=== PATIENT | female | born 1985 | race African-American/Black ===

== ENCOUNTER 2016-07-25 09:38 | Emergency (ER) | payer OTHER | END 2016-07-25 12:29 | disposition home or self-care (01) | DX: S83.411A Sprain of medial collateral ligament of right knee, initial encounter (principal); X50.9XXA Other and unspecified overexertion or strenuous movements or postures, initial encounter; Y93.B3 Activity, free weights; Y92.39 Other specified sports and athletic area as the place of occurrence of the external cause ==

== ENCOUNTER 2016-12-14 08:52 | Emergency (ER) | payer OTHER ==
--- NOTE | 2016-12-14 09:07 | ED Physician Documentation ---
PD HPI ABD PAIN - Stated complaint Stated Complaint: ABD PX - Chief complaint Chief Complaint: Abd Pain - History obtained from History obtained from: Patient - History of Present Illness Timing - onset: Yesterday Timing - duration: Days (1) Timing - details: Abrupt onset, Still present, Waxing and waning Quality: Aching, Stabbing, Pain Location: Epigastric Radiation: Upper back Improved by: No: Eating, Position Worsened by: Eating, Breathing, Palpation. No: Moving, Position Associated symptoms: Nausea. No: Fever, Vomiting, Diarrhea, Melena, Hematochezia, Dysuria Similar symptoms before: Has not had sx before Recently seen: Not recently seen Review of Systems Constitutional: denies: Fever, Chills Nose: denies: Rhinorrhea / runny nose, Congestion Throat: denies: Sore throat Cardiac: denies: Chest pain / pressure, Palpitations Respiratory: denies: Dyspnea, Cough, Wheezing GI: reports: Abdominal Pain, Nausea. 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 - Present Medications Home Medications: Ambulatory Orders Medication Instructions Recorded Confirmed Ergocalciferol [Vitamin D2] 1 tab PO DAILY 07/25/16 07/25/16 Hydromorphone HCl [Dilaudid] 4 - 8 mg PO Q4HR PRN #20 tablet 07/25/16 Levothyroxine [Synthroid] 25 mcg PO DAILY 07/25/16 07/25/16 Famotidine [Pepcid] 20 mg PO ONCE #30 tablet 12/14/16 HYDROmorphone [Dilaudid] 2 mg PO Q6H PRN #15 tablet 12/14/16 Ondansetron Odt [Zofran] 4 mg TL Q6H PRN #15 tablet 12/14/16 Sucralfate 1 gm PO QID #28 tablet 12/14/16 - Allergies Allergies/Adverse Reactions: Allergies Allergy/AdvReac Type Severity Reaction Status Date / Time acetaminophen Allergy Unknown Verified 07/25/16 09:50 [From Darvocet-N 100] avocado Allergy Unknown Verified 07/25/16 09:50 coconut oil Allergy Unknown Verified 07/25/16 09:50 oxycodone HCl * Allergy Unknown Verified 07/25/16 09:50 [From Percocet] propoxyphene napsylate * Allergy Unknown Verified 07/25/16 09:50 [From Darvocet-N 100] codeine AdvReac Unknown Verified 07/25/16 09:50 hydrocodone bitartrate * AdvReac Unknown Verified 07/25/16 09:50 [From Vicodin] Iodine and Iodide Containing AdvReac Unknown Verified 07/25/16 09:51 Produc tramadol AdvReac Unknown Verified 07/25/16 09:50 - Social History Does the pt smoke?: No Smoking Status: Never smoker Does the pt drink ETOH?: No Does the pt have substance abuse?: No - Immunizations Immunizations are current?: Yes - POLST Patient has POLST: No PD ED PE NORMAL - Vitals Vital signs reviewed: Yes - General General: Alert and oriented X 3, Well developed/nourished - HEENT HEENT: PERRL (nonicteric), Pharynx benign - Neck Neck: Supple, no meningeal sign, No adenopathy - Cardiac Cardiac: RRR, No murmur - Respiratory Respiratory: Clear bilaterally - Abdomen Abdomen: Normal bowel sounds, Soft, Non distended, No organomegaly, Other ( moderately obese. Tender epigastric with guarding. No rebound nor percussion tenderness. ) - Female Female : Deferred - Rectal Rectal: Deferred - Back Back: No CVA TTP - Derm Derm: Normal color, Warm and dry - Extremities Extremities: Normal ROM s pain, No edema, No calf tenderness / cord - Neuro Neuro: Alert and oriented X 3, No motor deficit, Normal speech Results - Vitals Vitals: Vital Signs - 24 hr 12/14/16 12/14/16 12/14/16 08:55 11:05 12:46 Temperature 36.9 C Heart Rate 84 72 70 Respiratory 18 14 14 Rate Blood Pressure 111/76 98/61 108/64 O2 Saturation 100 98 98 12/14/16 13:44 Temperature 36.9 C Heart Rate 74 Respiratory 16 Rate Blood Pressure 102/68 O2 Saturation 98 Oxygen O2 Source Room air - Labs Labs: Laboratory Tests 12/14/16 12/14/16 12/14/16 09:17 09:40 09:40 WBC 9.0 RBC 4.52 Hgb 12.5 Hct 37.3 MCV 82.6 MCH 27.7 MCHC 33.6 RDW 13.8 Plt Count 232 MPV 7.5 L Neut # 5.1 Lymph # 3.1 Jackson # 0.6 Eos # 0.1 Baso # 0.1 Absolute Nucleated RBC 0.01 Nucleated RBCs 0.1 Sodium 139 Potassium 4.1 Chloride 104 Carbon Dioxide 24 Anion Gap 11.0 BUN 8 Creatinine 0.6 Estimated GFR (MDRD) 141 Glucose 103 H Calcium 9.1 Total Bilirubin 0.5 AST 24 ALT 20 Alkaline Phosphatase 70 Total Protein 7.9 Albumin 3.9 Globulin 4.0 Albumin/Globulin Ratio 1.0 Lipase 29 Urine Color YELLOW Urine Clarity CLEAR Urine pH 5.5 Ur Specific Check >=1.030 H Urine Protein NEGATIVE Urine Glucose (UA) NEGATIVE Urine Ketones NEGATIVE Urine Occult Blood NEGATIVE Urine Nitrite NEGATIVE Urine Bilirubin NEGATIVE Urine Urobilinogen 0.2 (NORMAL) Ur Leukocyte Esterase NEGATIVE Ur Microscopic Review NOT INDICATED Urine Culture Comments NOT INDICATED Urine HCG, Qual NEGATIVE H. pylori IgG Antibody 12/14/16 09:40 WBC RBC Hgb Hct MCV MCH MCHC RDW Plt Count MPV Neut # Lymph # Jackson # Eos # Baso # Absolute Nucleated RBC Nucleated RBCs Sodium Potassium Chloride Carbon Dioxide Anion Gap BUN Creatinine Estimated GFR (MDRD) Glucose Calcium Total Bilirubin AST ALT Alkaline Phosphatase Total Protein Albumin Globulin Albumin/Globulin Ratio Lipase Urine Color Urine Clarity Urine pH Ur Specific Check Urine Protein Urine Glucose (UA) Urine Ketones Urine Occult Blood Urine Nitrite Urine Bilirubin Urine Urobilinogen Ur Leukocyte Esterase Ur Microscopic Review Urine Culture Comments Urine HCG, Qual H. pylori IgG Antibody Negative - Rads (name of study) CT abd Radiology: Prelim report reviewed (normal study), EMP read contemporaneously PD MEDICAL DECISION MAKING - ED course Complexity details: reviewed results, re-evaluated patient (mildly improved with GI meds. Better with pain meds. ), considered differential (sounds like gastritis/ulcer, but only mildly improved with GI cocktail. Consider perforation /leakage. Labs are good so not pancreatitis. Has had prior CCY and alk phos and LFTs are normal so doubt ductal process. ), d/w patient Departure - Departure Disposition: 01 Home, Self Care Clinical Impression: Epigastric abdominal pain Condition: Stable Record reviewed to determine appropriate education?: Yes Instructions: ED Epigastric Pain UKO, ED PUD Follow-Up: [facility] [Provider Group] Prescriptions: HYDROmorphone [Dilaudid] 2 mg PO Q6H PRN #15 tablet PRN Reason: Pain Famotidine [Pepcid] 20 mg PO ONCE #30 tablet Sucralfate 1 gm PO QID #28 tablet Ondansetron Odt [Zofran] 4 mg TL Q6H PRN #15 tablet PRN Reason: Nausea / Vomiting Comments: No obvious cause of the pain based on the lab and CT tests. Things that would not show on these tests include stomach problems such as ulcer/gastritis, so will treat as that for now. Famotidine and Sucralfate as directed to reduce stomach acids and help healing. Tylenol for pain 650 mg 4 times daily. Add Dilaudid tablet (about the only thing you are not allergic to) for pain as needed. Recheck with PMD in 3-4 days. Zofran if needed for nausea. Discharge Date/Time: 12/14/16 13:49
[2016-12-14] MEDS ORDERED: ONDANSETRON 4 MG/2 ML VIAL IVP STA (09:27)
[2016-12-14] MEDS ORDERED: MAG HYDROX/AL HYDROX/SIMETH 30 ML UDC PO STA ×2 (09:27→12:54)
[2016-12-14 09:31] LABS: BILIRUBIN,URINE NEGATIVE (NEGATIVE); PH,URINE 5.5 PH (5.0-7.5)
[2016-12-14 09:32] LABS: UA CHARGE (STRIP ONLY) YES; UR CULTURE IF IND NOT INDICATED
[2016-12-14] MEDS ORDERED: MAG HYDROX/AL HYDROX/SIMETH 30 ML UDC ONE ×2 (09:36→13:27)
[2016-12-14] MEDS ORDERED: ONDANSETRON 4 MG/2 ML VIAL ONE (09:36)
[2016-12-14 09:42] LABS: HCG UR QUAL NEGATIVE
[2016-12-14 09:52] LABS: BASOPHILS # (AUTO) 0.1 10^3/uL (0.0-0.1); BASOPHILS % (AUTO) 0.8 %; EOSINOPHILS # (AUTO) 0.1 10^3/uL (0.0-0.7); EOSINOPHILS % (AUTO) 1.3 %; HCT - HEMATOCRIT 37.3 % (37.0-47.0); HGB - HEMOGLOBIN 12.5 g/dL (12.0-16.0); LYMPHOCYTES # (AUTO) 3.1 10^3/uL (1.5-3.5); LYMPHOCYTES % (AUTO) 34.4 %; MEAN CORPUSCULAR HEMOGLOBIN 27.7 pg (27.0-31.0); MEAN CORPUSCULAR HGB CONC 33.6 g/dL (32.0-36.0); MEAN CORPUSCULAR VOLUME 82.6 fL (81.0-99.0); MEAN PLATELET VOLUME 7.5 fL (7.9-10.8); MONOCYTES # (AUTO) 0.6 10^3/uL (0.0-1.0); MONOCYTES % (AUTO) 6.6 %; NEUTROPHILS # (AUTO) 5.1 10^3/uL (1.5-6.6); NEUTROPHILS % (AUTO) 56.9 %; NUCLEATED RED BLOOD CELLS AUTO 0.1 /100WBC; RED BLOOD COUNT 4.52 10^6/uL (4.20-5.40); RED CELL DISTRIBUTION WIDTH 13.8 % (12.0-15.0)
[2016-12-14 10:02] LABS: BILIRUBIN,TOTAL 0.5 mg/dL (0.2-1.0); CALCIUM 9.1 mg/dL (8.5-10.3); CREATININE 0.6 mg/dL (0.4-1.0); POTASSIUM 4.1 mmol/L (3.5-5.0); TOTAL PROTEIN 7.9 g/dL (6.7-8.2)
[2016-12-14] MEDS ORDERED: HYDROmorphone 1 MG/ML SYRINGE IVP STA ×2 (10:38→12:54)
[2016-12-14] MEDS ORDERED: HYDROmorphone 1 MG/ML SYRINGE ONE (10:54)
--- NOTE | 2016-12-14 11:20 | CT Preliminary Report ---
Exam: CT Abdomen/Pelvis W/O IMPRESSION: No acute pathology. [facility] SITE ID: [id number]
--- NOTE | 2016-12-14 11:29 | CT Report ---
EXAM: CT ABDOMEN AND PELVIS (CT KUB) EXAM DATE: 12/14/2016 11:04 AM. CLINICAL HISTORY: Upper abdomen pain. COMPARISONS: Prior CT 09/05/2014. TECHNIQUE: Routine axial helical CT imaging was performed through the abdomen and pelvis without IV c ontrast. Reconstructions: Coronal and sagittal. In accordance with CT protocol optimization, one or more of the following dose reduction techniques w ere utilized for this exam: automated exposure control, adjustment of mA and/or KV based on patient s ize, or use of iterative reconstructive technique. FINDINGS: Lung Bases: Unremarkable. Right Kidney/Ureter: No stones, hydronephrosis, or hydroureter. No perinephric fat stranding. Left Kidney/Ureter: No stones, hydronephrosis, or hydroureter. No perinephric fat stranding. Other Solid Organs: Noncontrast images of the solid organs are grossly unremarkable. Gallbladder/Bile Ducts: Prior cholecystectomy. Peritoneal Cavity: No free fluid, free air or guillaume adenopathy. Bowel is grossly unremarkable. Pelvic Organs: No bladder stones or wall thickening. Noncontrast images of the visualized pelvic orga ns are unremarkable. Vasculature: Unremarkable. Other: None. IMPRESSION: No acute pathology. [facility] Referring Provider Line: [phone] SITE ID: [id number]
[2016-12-14] MEDS ORDERED: LIDOCAINE VISCOUS 2% 15 ML UDC MM STA (12:54)
[2016-12-14] MEDS ORDERED: FAMOTIDINE 20 MG TABLET PO STA (12:54)
[2016-12-14] MEDS ORDERED: HYDROmorphone 2 MG TABLET PO STA (13:25)
[2016-12-14] MEDS ORDERED: FAMOTIDINE 20 MG TABLET ONE (13:27)
[2016-12-14] MEDS ORDERED: LIDOCAINE VISCOUS 2% 15 ML UDC MM ONE (13:27)
[2016-12-14] MEDS ORDERED: HYDROmorphone 2 MG TABLET ONE (13:31)
[2016-12-14 13:39] LABS: H. PYLORI IGG ANTIBODY Negative (Negative); HPYLORI NEG QC Negative (Negative); HPYLORI POS QC POSITIVE (Positive)
[2016-12-14 13:45] VITALS: BP 102/68
== END 2016-12-14 13:49 | disposition home or self-care (01) ==
LOC: ED 08:52
DX: R10.13 Epigastric pain (principal); R11.0 Nausea
CPT/HCPCS: 36415; 74176; 80053; 81003; 81025; 83690; 85025; 87339; 96374; 96375; 99284; A9270; J1170; 81001; 87086

== ENCOUNTER 2017-08-18 16:21 | Outpatient (CLI) | payer OTHER ==
--- NOTE | 2017-08-19 16:30 | MRI Report ---
EXAM: LEFT KNEE MRI WITHOUT CONTRAST EXAM DATE: 08/18/2017 05:44 PM. CLINICAL HISTORY: Left knee pain for 5 months after blunt trauma. COMPARISON: None. TECHNIQUE: Multiplanar, multisequence T1-weighted and fluid-sensitive sequences of the knee without c ontrast. Other: None. FINDINGS: Bones: No fractures or subluxations. No marrow edema. No bone lesions. Articular Cartilage: Mild chondromalacia trochlear groove. Mild chondromalacia patella. Medial Meniscus: Posterior horn medial meniscus multiloculated parameniscal cyst measuring 1.6 cm in height, 1.2 cm in AP dimension 4.3 cm in transverse dimension. Additional anterolateral medial menisc us parameniscal 1.1 cm in height, 4 mm in the AP dimension and 1.1 cm in transverse dimension cyst. Lateral Meniscus: The lateral meniscus is intact. Cruciate Ligaments: The anterior and posterior cruciate ligaments are intact. Collateral Ligaments: The medial collateral and lateral collateral ligamentous structures are intact. Tendons: The quadriceps, patellar, semimembranosus, and popliteus tendons are unremarkable. Musculature: No edema or fatty atrophy. Other: No effusion. No popliteal cyst. No loose bodies. The medial and lateral retinacula are intact. The subcutaneous tissues and fat pads are unremarkable. IMPRESSION: 1. No definite meniscus tear or internal derangement. 2. There is a posterior horn medial meniscus parameniscal multiloculated cyst 4.3 cm in transverse di mension, 1.2 cm in AP dimension and 1.6 cm in height. 3. Anterolateral medial meniscus parameniscal cyst 1.8 cm in transverse dimension, 1.1 cm in height a nd 4 mm in thickness. [facility] Referring Provider Line: [phone] SITE ID: [id number]
== END 2017-08-18 16:22 | disposition home or self-care (01) ==
LOC: DI 16:21
PROVIDERS: ATTEND Physician Assistant Medical
DX: M23.022 Cystic meniscus, posterior horn of medial meniscus, left knee (principal); M23.032 Cystic meniscus, other medial meniscus, left knee

== ENCOUNTER 2017-10-16 12:37 | Emergency (ER) | payer OTHER ==
[2017-10-16 12:59] VITALS: BP 129/87
[2017-10-16] MEDS ORDERED: MAG HYDROX/AL HYDROX/SIMETH 30 ML UDC PO STA (13:17)
[2017-10-16] MEDS ORDERED: PHENobarb/HYOSCY/ATROPINE/SCOP 5 ML UDC PO STA (13:18)
[2017-10-16] MEDS ORDERED: LIDOCAINE VISCOUS 2% 15 ML UDC MM STA (13:18)
--- NOTE | 2017-10-16 14:40 | XRAY Preliminary Report ---
Exam: XR CHEST 2 VIEW X-RAY IMPRESSION: Normal 2-view chest radiography. [facility] SITE ID: [id number]
--- NOTE | 2017-10-16 14:41 | XRAY Report ---
EXAM: CHEST RADIOGRAPHY EXAM DATE: 10/16/2017 02:04 PM. CLINICAL HISTORY: Possible aspiration last night. Patient presents with chest pain. COMPARISON: None. TECHNIQUE: 2 views. FINDINGS: Lungs/Pleura: No focal opacities evident. No pleural effusion. No pneumothorax. Normal volumes. Mediastinum: Heart and mediastinal contours are unremarkable. Other: Large osteophytes extending off the left side of the inferior thoracic spine. Cholecystectomy. IMPRESSION: Normal 2-view chest radiography. [facility] Referring Provider Line: [phone] SITE ID: [id number]
--- NOTE | 2017-10-16 14:53 | ED Physician Documentation ---
PD HPI CHEST PAIN - Stated complaint Stated Complaint: THROAT PX, CHEST PX WITH COUGH - Chief complaint Chief Complaint: Heent - History obtained from History obtained from: Patient - History of Present Illness Timing - onset: Yesterday Quality: Tightness Location: Substernal Associated symptoms: Cough Similar symptoms before: Has not had sx before - Additional information Additional information: The patient is a 32-year-old female who complains of sore throat and substernal chest tightness. Her symptoms started last night when she vomited 5 times after eating. She reports cough, but denies shortness of breath. Last night she thought she might be having an allergic reaction to something she ate, so took Benadryl. She denies history of similar symptoms in the past. Review of Systems Constitutional: denies: Fever Nose: denies: Congestion Throat: reports: Sore throat (Described as "raw feeling.") Cardiac: reports: Chest pain / pressure (Substernal "tightness" with coughing.) . denies: Palpitations Respiratory: reports: Cough. denies: Dyspnea GI: reports: Vomiting (Vomiting last night, but not today.). 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 - Present Medications Home Medications: Ambulatory Orders Medication Instructions Recorded Confirmed Adalimumab [Humira] 10 mg PO 05/22/17 - Allergies Allergies/Adverse Reactions: Allergies Allergy/AdvReac Type Severity Reaction Status Date / Time acetaminophen Allergy Unknown Verified 10/16/17 12:59 [From Darvocet-N 100] avocado Allergy Unknown Verified 10/16/17 12:59 coconut oil Allergy Unknown Verified 10/16/17 12:59 oxycodone HCl * Allergy Unknown Verified 10/16/17 12:59 [From Percocet] propoxyphene napsylate * Allergy Unknown Verified 10/16/17 12:59 [From Darvocet-N 100] codeine AdvReac Unknown Verified 10/16/17 12:59 hydrocodone bitartrate * AdvReac Unknown Verified 10/16/17 12:59 [From Vicodin] Iodine and Iodide Containing AdvReac Unknown Verified 10/16/17 12:59 Produc tramadol AdvReac Unknown Verified 10/16/17 12:59 - Social History Does the pt smoke?: No Smoking Status: Never smoker Does the pt drink ETOH?: No Does the pt have substance abuse?: No - Immunizations Immunizations are current?: Yes - POLST Patient has POLST: No PD ED PE NORMAL - Vitals Vital signs reviewed: Yes (Borderline hypertension initially.) - General General: Alert and oriented X 3, Well developed/nourished - HEENT HEENT: Atraumatic, EOMI, Moist mucous membranes, Pharynx benign - Neck Neck: Supple, no meningeal sign, No adenopathy, No JVD - Cardiac Cardiac: RRR, No murmur - Respiratory Respiratory: No respiratory distress, Clear bilaterally - Abdomen Abdomen: Soft, Other (Mild epigastric tenderness to palpation, without rebound or guarding.) - Back Back: No CVA TTP - Derm Derm: No rash - Extremities Extremities: No edema, No calf tenderness / cord - Neuro Neuro: Alert and oriented X 3, No motor deficit, Normal speech Results - Vitals Vitals: Oxygen O2 Source Room air - Rads (name of study) CXR Radiology: Prelim report reviewed, EMP read contemporaneously, See rad report ( Normal 2 view chest radiography.) PD MEDICAL DECISION MAKING - ED course Complexity details: reviewed results, re-evaluated patient, considered differential, d/w patient ED course: The patient's presentation is most consistent with esophageal inflammation caused by vomiting. Suha-Carter tear is considered, but is less likely. Chest x-ray was performed, and there is no evidence of radiographic abnormality. Treatment in the emergency department included administration of GI cocktail, which improved the patient's symptoms. She is being discharged with a prescription for ranitidine. I discussed with her the diagnosis, symptomatically treatment and outpatient follow-up, as well as potentially worrisome signs or symptoms that should prompt reevaluation in the emergency department. Departure - Departure Disposition: 01 Home, Self Care Clinical Impression: GERD (gastroesophageal reflux disease) Qualifiers: Esophagitis presence: esophagitis presence not specified Qualified Code(s): K21.9 - Gastro-esophageal reflux disease without esophagitis Condition: Stable Instructions: ED GERD Follow-Up: Ac,Thu A, COMPLIANCE COUNSEL [Primary Care Provider] - Comments: Use ranitidine twice daily as previously prescribed. You can use liquid antacid, such as Maalox or Mylanta if needed for recurrent symptoms. Follow up with your primary physician within 1-2 weeks. Call to schedule an appointment. Return to the emergency department if you develop increasing pain, persistent vomiting, or otherwise worsening symptoms. Discharge Date/Time: 10/16/17 15:09
== END 2017-10-16 15:09 | disposition home or self-care (01) ==
LOC: ED 12:37
DX: K21.9 Gastro-esophageal reflux disease without esophagitis (principal)
CPT/HCPCS: 71046; 99282; 99284; A9270

== ENCOUNTER 2018-03-25 10:51 | Outpatient (CLI) | payer OTHER | END 2018-03-25 10:52 | disposition critical access hospital (66) | LOC: EMS 10:51 | PROVIDERS: ATTEND Surgery | DX: R13.10 Dysphagia, unspecified (principal); R06.00 Dyspnea, unspecified; L29.9 Pruritus, unspecified | CPT/HCPCS: A0425; A0427 ==

== ENCOUNTER 2018-03-25 11:17 | Emergency (ER) | payer OTHER ==
[2018-03-25] MEDS ORDERED: DEXAMETHASONE 10 MG/ML VIAL IVP STA (12:08)
--- NOTE | 2018-03-25 12:09 | ED Physician Documentation ---
History of Present Illness - Stated complaint Stated Complaint: DIFF. BREATHING - Chief complaint Chief Complaint: Resp - History obtained from History obtained from: Patient - History of Present Illness Timing: Today (32-year-old woman with no possibility of , multiple food and drug allergies. She woke at 8 AM this morning with a sensation of shortness of breath due to throat swelling. There is no associated wheezing or rash. She does not know what caused it. 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 - Present Medications Home Medications: Ambulatory Orders Medication Instructions Recorded Confirmed Adalimumab [Humira] 10 mg PO 05/22/17 Meloxicam 7.5 mg 03/25/18 buPROPion [Wellbutrin Sr] 100 mg 03/25/18 predniSONE [Prednisone] 60 mg PO DAILY 5 Days #15 tablet 03/25/18 - Allergies Allergies/Adverse Reactions: Allergies Allergy/AdvReac Type Severity Reaction Status Date / Time acetaminophen Allergy Unknown Verified 03/25/18 11:30 [From Darvocet-N 100] avocado Allergy Unknown Verified 03/25/18 11:30 coconut oil Allergy Unknown Verified 03/25/18 11:30 oxycodone HCl * Allergy Unknown Verified 03/25/18 11:30 [From Percocet] propoxyphene napsylate * Allergy Unknown Verified 03/25/18 11:30 [From Darvocet-N 100] codeine AdvReac Unknown Verified 03/25/18 11:30 hydrocodone bitartrate * AdvReac Unknown Verified 03/25/18 11:30 [From Vicodin] Iodine and Iodide Containing AdvReac Unknown Verified 03/25/18 11:30 Produc tramadol AdvReac Unknown Verified 03/25/18 11:30 - Social History Does the pt smoke?: No Smoking Status: Never smoker Does the pt drink ETOH?: No Does the pt have substance abuse?: No - Immunizations Immunizations are current?: Yes - POLST Patient has POLST: No PD ED PE NORMAL - Vitals Vital signs reviewed: Yes - General General: Alert and oriented X 3, No acute distress - HEENT HEENT: Ears normal, Pharynx benign - Neck Neck: Supple, no meningeal sign, No bony TTP - Cardiac Cardiac: RRR, No murmur - Respiratory Respiratory: No respiratory distress, Clear bilaterally - Abdomen Abdomen: Non tender - Derm Derm: No rash - Neuro Neuro: Alert and oriented X 3, Normal speech Results - Vitals Vitals: Vital Signs - 24 hr 03/25/18 11:25 Temperature 36.7 C Heart Rate 98 Respiratory 18 Rate Blood Pressure 117/77 O2 Saturation 95 Oxygen O2 Source Room air PD MEDICAL DECISION MAKING - Sepsis Event Vital Signs: Vital Signs - 24 hr 03/25/18 11:25 Temperature 36.7 C Heart Rate 98 Respiratory 18 Rate Blood Pressure 117/77 O2 Saturation 95 Oxygen O2 Source Room air Departure - Departure Disposition: 01 Home, Self Care Clinical Impression: Allergic reaction Qualifiers: Encounter type: initial encounter Qualified Code(s): T78.40XA - Allergy, unspecified, initial encounter Condition: Good Record reviewed to determine appropriate education?: Yes Instructions: ED Allergic React Food Prescriptions: predniSONE [Prednisone] 60 mg PO DAILY 5 Days #15 tablet Comments: Call your doctor to arrange a follow-up appointment, make the next available appointment. In the interim, return anytime if worse or if new symptoms develop.
[2018-03-25 12:41] VITALS: BP 115/66
== END 2018-03-25 12:39 | disposition home or self-care (01) ==
LOC: ED 11:17
DX: T78.40XA Allergy, unspecified, initial encounter (principal); X58.XXXA Exposure to other specified factors, initial encounter; Z91.018 Allergy to other foods; Z88.9 Allergy status to unspecified drugs, medicaments and biological substances
CPT/HCPCS: 96374; 99283

== ENCOUNTER 2019-06-23 12:03 | Emergency (ER) | payer OTHER ==
[2019-06-23] MEDS ORDERED: LIDOCAINE 1%-EPI 1:100000 20 ML MDV ONE (13:22)
--- NOTE | 2019-06-23 13:36 | ED Physician Documentation ---
PD HPI SKIN - Stated complaint Stated Complaint: ABSCESS - Chief complaint Chief Complaint: Wound - History obtained from History obtained from: Patient - History of Present Illness Timing - onset: How many days ago (3) Timing - duration: Days (3) Timing - details: Abrupt onset Severity Comments: mild Location: Other (right axilla) Quality / character: Painful, Swelling Improved by: Other (nothing) Worsened by (comment): COMMENT (palpation) Associated symptoms: No: Fever Contributing factors: Other (hx of hidradenitis supparativa) - Treatment prior to arrival Treatment prior to arrival: none Review of Systems Ten Systems: 10 systems reviewed and negative Constitutional: denies: Fever Cardiac: reports: Reviewed and negative Respiratory: reports: Reviewed and negative GI: reports: Reviewed and negative. denies: Nausea, Vomiting Skin: reports: Other (abscess) Musculoskeletal: reports: Reviewed and negative Neurologic: reports: Reviewed and negative Endocrine: reports: Reviewed and negative Immunocompromised: reports: Reviewed and negative PD PAST MEDICAL HISTORY - Past Medical History Past Medical History: Yes Respiratory: Asthma Endocrine/Autoimmune: None GI: Hiatal hernia Psych: Depression Derm: Psoriasis Other Past Medical History: hydranitis. 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, Other - Present Medications Home Medications: Ambulatory Orders Medication Instructions Recorded Confirmed Adalimumab [Humira] 10 mg PO 05/22/17 Meloxicam 7.5 mg 03/25/18 buPROPion [Wellbutrin Sr] 100 mg 03/25/18 predniSONE [Prednisone] 60 mg PO DAILY 5 Days #15 tablet 03/25/18 Cephalexin [Keflex] 500 mg PO Q6H #28 capsule 06/23/19 - Allergies Allergies/Adverse Reactions: Allergies Allergy/AdvReac Type Severity Reaction Status Date / Time acetaminophen Allergy Unknown Verified 06/23/19 12:09 [From Darvocet-N 100] avocado Allergy Unknown Verified 06/23/19 12:09 coconut oil Allergy Unknown Verified 06/23/19 12:09 oxycodone HCl * Allergy Unknown Verified 06/23/19 12:09 [From Percocet] propoxyphene napsylate * Allergy Unknown Verified 06/23/19 12:09 [From Darvocet-N 100] codeine AdvReac Unknown Verified 06/23/19 12:09 hydrocodone bitartrate * AdvReac Unknown Verified 06/23/19 12:09 [From Vicodin] Iodine and Iodide Containing AdvReac Unknown Verified 06/23/19 12:09 Produc tramadol AdvReac Unknown Verified 06/23/19 12:09 - Social History Does the pt smoke?: No Smoking Status: Never smoker Does the pt drink ETOH?: Yes Does the pt have substance abuse?: No - Immunizations Immunizations are current?: Yes - POLST Patient has POLST: No PD ED PE NORMAL - Vitals Vital signs reviewed: Yes - General General: Alert and oriented X 3, No acute distress, Well developed/nourished - HEENT HEENT: Atraumatic, Moist mucous membranes - Neck Neck: Supple, no meningeal sign - Cardiac Cardiac: RRR - Respiratory Respiratory: No respiratory distress - Abdomen Abdomen: Soft, Non distended, Other (obese) - Female Female : Deferred - Rectal Rectal: Deferred - Derm Derm: Normal color, Warm and dry, No rash, Other (R axillary tenderness, about 2cm in size subcutaneous palpable mass in the axilla. not fluctuant. very tender, no surrounding redness or swelling) - Neuro Neuro: Alert and oriented X 3, Normal speech Eye Opening: Spontaneous Motor: Obeys Commands Verbal: Oriented GCS Score: 15 - Psych Psych: Normal mood, Normal affect Results - Vitals Vitals: Vital Signs - 24 hr 06/23/19 06/23/19 12:09 12:32 Temperature 37.1 C 36.7 C Heart Rate 91 93 Respiratory 18 18 Rate Blood Pressure 115/50 L 160/92 H O2 Saturation 96 98 Oxygen O2 Source Room air Procedures - Abscess I&D (location) Other right Preparation: Confirmed with ultrasound, Lidocaine 2 %, With epi Incision: Incised with scalpel, Other (minimal serous drainage) Other: Pt tolerated well - Bedside sono Bedside sono by EMP: Bedside skin US of R axilla performed demonstrates a small fluid collection about 1x2cm in size PD MEDICAL DECISION MAKING - ED course Complexity details: re-evaluated patient, considered differential, d/w patient ED course: abscess, cellulitis, cyst, lymph node, sebaceous cyst. 33 y/o F with hx of hidadrenitis suppurative with a small lump under her R axilla. Small palpable fluid collection, visualized on US performed I&D here with small amount of nonpurulent fluid. She is stable for discharge with oral antibiotics and outpt f/u for wound recheck. Departure - Departure Disposition: 01 Home, Self Care Clinical Impression: Axillary abscess Condition: Stable Record reviewed to determine appropriate education?: Yes Instructions: ED Abscess IandD Follow-Up: Antonio Marlow MD [Primary Care Provider] - As Needed Prescriptions: Cephalexin [Keflex] 500 mg PO Q6H #28 capsule
[2019-06-23 13:54] VITALS: BP 116/56
== END 2019-06-23 13:55 | disposition home or self-care (01) ==
LOC: ED 12:03
DX: L02.411 Cutaneous abscess of right axilla (principal)
CPT/HCPCS: 10060

== ENCOUNTER 2019-08-08 20:47 | Emergency (ER) | payer OTHER ==
--- NOTE | 2019-08-08 20:50 | ED Physician Documentation ---
History of Present Illness - Stated complaint Stated Complaint: UPPER RT SIDE PAIN - Chief complaint Chief Complaint: Abd Pain - History obtained from History obtained from: Patient (The patient is a very pleasant 33-year-old female with a history of previous cholecystectomy about 3 years ago presents with right upper quadrant pain with nausea without vomiting she denies any chest pain or breast pain she denies any syncopal episodes denies any history of pulmonary embolism or DVT denies any recent surgeries or long travels or any history of hypercoagulability.) Review of Systems Constitutional: reports: Reviewed and negative Eyes: reports: Reviewed and negative Ears: reports: Reviewed and negative Nose: reports: Reviewed and negative Throat: reports: Reviewed and negative Cardiac: reports: Reviewed and negative Respiratory: reports: Reviewed and negative GI: reports: Abdominal Pain, Reviewed and negative : reports: Reviewed and negative Skin: reports: Reviewed and negative Musculoskeletal: reports: Reviewed and negative Neurologic: reports: Reviewed and negative Psychiatric: reports: Reviewed and negative Endocrine: reports: Reviewed and negative Immunocompromised: reports: Reviewed and negative PD PAST MEDICAL HISTORY - Past Medical History Respiratory: Asthma Endocrine/Autoimmune: None GI: Hiatal hernia Psych: Depression Derm: Psoriasis - Past Surgical History Past Surgical History: Yes 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, Other - Present Medications Home Medications: Ambulatory Orders Medication Instructions Recorded Confirmed Adalimumab [Humira] 10 mg PO 05/22/17 Meloxicam 7.5 mg 03/25/18 buPROPion [Wellbutrin Sr] 100 mg 03/25/18 predniSONE [Prednisone] 60 mg PO DAILY 5 Days #15 tablet 03/25/18 Cephalexin [Keflex] 500 mg PO Q6H #28 capsule 06/23/19 - Allergies Allergies/Adverse Reactions: Allergies Allergy/AdvReac Type Severity Reaction Status Date / Time acetaminophen Allergy Unknown Verified 06/23/19 12:09 [From Darvocet-N 100] avocado Allergy Unknown Verified 06/23/19 12:09 coconut oil Allergy Unknown Verified 06/23/19 12:09 oxycodone HCl * Allergy Unknown Verified 06/23/19 12:09 [From Percocet] propoxyphene napsylate * Allergy Unknown Verified 06/23/19 12:09 [From Darvocet-N 100] codeine AdvReac Unknown Verified 06/23/19 12:09 hydrocodone bitartrate * AdvReac Unknown Verified 06/23/19 12:09 [From Vicodin] Iodine and Iodide Containing AdvReac Unknown Verified 06/23/19 12:09 Produc tramadol AdvReac Unknown Verified 06/23/19 12:09 - Social History Does the pt smoke?: No Smoking Status: Never smoker Does the pt drink ETOH?: Yes Does the pt have substance abuse?: No - Immunizations Immunizations are current?: Yes - POLST Patient has POLST: No PD ED PE NORMAL - Vitals Vital signs reviewed: Yes - General General: Alert and oriented X 3, No acute distress - HEENT HEENT: PERRL - Neck Neck: Supple, no meningeal sign - Cardiac Cardiac: RRR, No murmur - Respiratory Respiratory: Clear bilaterally, Other (There is point tenderness over ribs 8 and 9 in the anterior axillary line there is no ecchymosis or rashes there is no crepitus or deformities she has clear bilateral breath sounds.) - Abdomen Abdomen: Normal bowel sounds, Soft, Non tender, Non distended - Derm Derm: Warm and dry - Extremities Extremities: No deformity - Neuro Neuro: Alert and oriented X 3 - Psych Psych: Normal mood, Normal affect Results - Vitals Vitals: Vital Signs - 24 hr 08/08/19 08/08/19 20:49 21:46 Temperature 36.7 C Heart Rate 99 73 Respiratory 18 18 Rate Blood Pressure 130/58 L 125/76 O2 Saturation 100 97 Oxygen O2 Source Room air - EKG (time done) No standard instances Rate: Other (No STEMI) - Labs Labs: Laboratory Tests 08/08/19 08/08/19 08/08/19 21:00 21:35 21:35 WBC 10.0 RBC 4.35 Hgb 12.1 Hct 36.3 L MCV 83.4 MCH 27.8 MCHC 33.3 RDW 13.0 Plt Count 298 MPV 9.2 Neut # (Auto) 4.8 Lymph # (Auto) 4.4 H [place] # (Auto) 0.6 Eos # (Auto) 0.1 Baso # (Auto) 0.1 Absolute Nucleated RBC 0.00 Nucleated RBC % 0.0 PT 12.1 INR 1.1 APTT 31.1 Sodium Potassium Chloride Carbon Dioxide Anion Gap BUN Creatinine Estimated GFR (MDRD) Glucose Calcium Total Bilirubin AST ALT Alkaline Phosphatase Total Creatine Kinase Troponin I High Sens Total Protein Albumin Globulin Albumin/Globulin Ratio Lipase Urine Color YELLOW Urine Clarity CLEAR Urine pH 6.0 Ur Specific [place] 1.020 Urine Protein NEGATIVE Urine Glucose (UA) NEGATIVE Urine Ketones NEGATIVE Urine Occult Blood TRACE-INTA Urine Nitrite NEGATIVE Urine Bilirubin NEGATIVE Urine Urobilinogen 0.2 (NORMAL) Ur Leukocyte Esterase NEGATIVE Ur Microscopic Review NOT INDICATED Urine Culture Comments NOT INDICATED Urine HCG, Qual NEGATIVE 08/08/19 08/08/19 21:35 21:35 WBC RBC Hgb Hct MCV MCH MCHC RDW Plt Count MPV Neut # (Auto) Lymph # (Auto) [place] # (Auto) Eos # (Auto) Baso # (Auto) Absolute Nucleated RBC Nucleated RBC % PT INR APTT Sodium 140 Potassium 3.4 L Chloride 102 Carbon Dioxide 26 Anion Gap 12.0 BUN 10 Creatinine 0.6 Estimated GFR (MDRD) 140 Glucose 101 H Calcium 9.1 Total Bilirubin 0.4 AST 21 ALT 15 Alkaline Phosphatase 65 Total Creatine Kinase 112 Troponin I High Sens < 2.3 L Total Protein 7.7 Albumin 3.6 Globulin 4.1 Albumin/Globulin Ratio 0.9 L Lipase 52 H Urine Color Urine Clarity Urine pH Ur Specific [place] Urine Protein Urine Glucose (UA) Urine Ketones Urine Occult Blood Urine Nitrite Urine Bilirubin Urine Urobilinogen Ur Leukocyte Esterase Ur Microscopic Review Urine Culture Comments Urine HCG, Qual PD MEDICAL DECISION MAKING - ED course Complexity details: re-evaluated patient (22:14 pain resolved, cxr neg, trop neg, unsure of etiology however patient is asymptomatic currently, will encourage close f/u and return to ed w any concerns.), other (Heart score 0 PERC 0) Departure - Departure Disposition: Home, Self Care Clinical Impression: Costochondral pain Condition: Good Instructions: [facility] Follow-Up: Antonio Marlow MD [Primary Care Provider] - Tomorrow
[2019-08-08] MEDS ORDERED: KETOROLAC 30 MG/ML VIAL IVP STA (21:08)
[2019-08-08] MEDS ORDERED: SODIUM CHLORIDE 0.9% 1,000 ML IV ONE (21:08)
[2019-08-08] MEDS ORDERED: ONDANSETRON 4 MG/2 ML VIAL IVP STA (21:08)
[2019-08-08 21:30] LABS: BILIRUBIN,URINE NEGATIVE (NEGATIVE); GLUCOSE, URINE (UA) NEGATIVE (NEGATIVE); KETONES,URINE (UA) NEGATIVE (NEGATIVE); LEUKOCYTE ESTERASE, URINE NEGATIVE (NEGATIVE); NITRITE,URINE NEGATIVE (NEGATIVE); OCCULT BLOOD,URINE TRACE-INTA (NEGATIVE); PROTEIN,URINE NEGATIVE (NEGATIVE); UROBILINOGEN,URINE 0.2 (NORMAL) E.U./dL (NORMAL)
--- NOTE | 2019-08-08 21:30 | XRAY Report ---
Reason: CP SOB Procedure Date: 08/08/2019 Accession Number: [id number] / [id number] Procedure: XR - Chest 2 View X-Ray CPT Code: 98099 Final Report FULL RESULT: EXAM: CHEST RADIOGRAPHY EXAM DATE: 08/08/2019 09:20 PM. CLINICAL HISTORY: Chest pain, shortness of breath COMPARISON: CHEST 2 VIEW 10/16/2017 1:51 PM. TECHNIQUE: 2 views. FINDINGS: Lungs/Pleura: No focal opacities evident. No pleural effusion. No pneumothorax. Normal volumes. Mediastinum: Heart and mediastinal contours are unremarkable. Other: None. IMPRESSION: No acute cardiopulmonary abnormality. RADIA
[2019-08-08 21:33] LABS: CLARITY,URINE CLEAR (CLEAR); HCG UR QUAL NEGATIVE
[2019-08-08 21:41] LABS: BASOPHILS # (AUTO) 0.1 10^3/uL (0.0-0.1); BASOPHILS % (AUTO) 0.5 %; EOSINOPHILS # (AUTO) 0.1 10^3/uL (0.0-0.7); EOSINOPHILS % (AUTO) 1.1 %; HGB - HEMOGLOBIN 12.1 g/dL (12.0-16.0); LYMPHOCYTES # (AUTO) 4.4 10^3/uL (1.5-3.5); LYMPHOCYTES % (AUTO) 43.9 %; MEAN CORPUSCULAR HEMOGLOBIN 27.8 pg (27.0-31.0); MEAN CORPUSCULAR HGB CONC 33.3 g/dL (32.0-36.0); MEAN CORPUSCULAR VOLUME 83.4 fL (81.0-99.0); MEAN PLATELET VOLUME 9.2 fL (7.9-10.8); MONOCYTES # (AUTO) 0.6 10^3/uL (0.0-1.0); MONOCYTES % (AUTO) 5.9 %; NEUTROPHILS # (AUTO) 4.8 10^3/uL (1.5-6.6); NEUTROPHILS % (AUTO) 48.4 %; PLT - PLATELET COUNT 298 10^3/uL (130-450); RED BLOOD COUNT 4.35 10^6/uL (4.20-5.40)
[2019-08-08 21:55] LABS: ALBUMIN 3.6 g/dL (3.2-5.5); ALBUMIN/GLOBULIN RATIO 0.9 (1.0-2.2); BILIRUBIN,TOTAL 0.4 mg/dL (0.2-1.0); CALCIUM 9.1 mg/dL (8.5-10.3); CREATININE 0.6 mg/dL (0.4-1.0); INR 1.1 (0.8-1.2); PT - PROTHROMBIN TIME 12.1 secs (9.9-12.6); TOTAL PROTEIN 7.7 g/dL (6.7-8.2)
[2019-08-08 22:02] LABS: PARTIAL THROMBOPLASTIN TIME 31.1 secs (24.9-33.3)
[2019-08-08 22:35] VITALS: BP 117/75
== END 2019-08-08 22:45 | disposition home or self-care (01) ==
LOC: ED 20:47
DX: R07.1 Chest pain on breathing (principal); Z90.49 Acquired absence of other specified parts of digestive tract
CPT/HCPCS: 36415; 71046; 80053; 81001; 81003; 81025; 82550; 83690; 84484; 85025; 85610; 85730; 87086; 93005; 96361; 96374; 96375; 99283

== ENCOUNTER 2019-08-14 14:45 | Emergency (ER) | payer OTHER ==
--- NOTE | 2019-08-14 15:23 | XRAY Report ---
Reason: pain/trauma Procedure Date: 08/14/2019 Accession Number: [id number] / [id number] Procedure: XR - Ankle 3 View RT CPT Code: Final Report FULL RESULT: EXAM: RIGHT ANKLE RADIOGRAPHY EXAM DATE: 08/14/2019 03:14 PM. CLINICAL HISTORY: Pain/trauma. COMPARISON: None. TECHNIQUE: 3 views. FINDINGS: Bones: No fracture. Tiny plantar spur. Joints: Normal. No effusion. No subluxations. The ankle mortise is normally aligned. Soft Tissues: Ankle swelling, greatest laterally IMPRESSION: 1. No fracture or dislocation. 2. Ankle swelling RADIA
[2019-08-14] MEDS ORDERED: IBUPROFEN 800 MG TABLET PO STA (15:38)
--- NOTE | 2019-08-14 15:45 | ED Physician Documentation ---
PD HPI LOWER EXT INJURY - Stated complaint Stated Complaint: RT ANKLE INJ - Chief complaint Chief Complaint: Trauma Ext - History obtained from History obtained from: Patient - History of Present Illness PD HPI LOW EXT INJURY LOCATION: Right, Ankle Type of injury: Twist Where injury occurred: Home Timing - onset: How many hours ago (2) Pain level max: 8 Pain level now: 8 Improved by: Rest, Ice, Immobilization Worsened by: Moving, Palpating Associated symptoms: Swelling. No: Weakness, Numbness, Tingling Recently seen: Not recently seen - Additional information Additional information: 33-year-old female states that she was "kicking worms out of her garage" when she rolled her ankle. She states she now has pain from the toes to the ankle on her right foot. Worse with movement and better with rest. This occurred earlier this morning. Took Motrin at approximately 9 AM. 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, 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 - Present Medications Home Medications: Ambulatory Orders Medication Instructions Recorded Confirmed Adalimumab [Humira] 10 mg PO 05/22/17 Meloxicam 7.5 mg 03/25/18 buPROPion [Wellbutrin Sr] 100 mg 03/25/18 predniSONE [Prednisone] 60 mg PO DAILY 5 Days #15 tablet 03/25/18 Cephalexin [Keflex] 500 mg PO Q6H #28 capsule 06/23/19 Ibuprofen [Motrin] 800 mg PO Q8H PRN #30 tablet 08/14/19 - Allergies Allergies/Adverse Reactions: Allergies Allergy/AdvReac Type Severity Reaction Status Date / Time acetaminophen Allergy Unknown Verified 08/14/19 14:59 [From Darvocet-N 100] avocado Allergy Unknown Verified 08/14/19 14:59 coconut oil Allergy Unknown Verified 08/14/19 14:59 oxycodone HCl * Allergy Unknown Verified 08/14/19 14:59 [From Percocet] propoxyphene napsylate * Allergy Unknown Verified 08/14/19 14:59 [From Darvocet-N 100] codeine AdvReac Unknown Verified 08/14/19 14:59 hydrocodone bitartrate * AdvReac Unknown Verified 08/14/19 14:59 [From Vicodin] Iodine and Iodide Containing AdvReac Unknown Verified 08/14/19 14:59 Produc tramadol AdvReac Unknown Verified 08/14/19 14:59 - Social History Does the pt smoke?: No Smoking Status: Never smoker Does the pt drink ETOH?: Yes Does the pt have substance abuse?: No - Immunizations Immunizations are current?: Yes - POLST Patient has POLST: No PD ED PE NORMAL - Vitals Vital signs reviewed: Yes - General General: Alert and oriented X 3, No acute distress - HEENT HEENT: Moist mucous membranes - Neck Neck: Supple, no meningeal sign - Derm Derm: Warm and dry - Extremities Extremities: Other (TTP R ankle and foot diffusely. NVI. Swelling to the R ankle. ) - Neuro Neuro: Alert and oriented X 3 Results - Vitals Vitals: Vital Signs - 24 hr 08/14/19 14:57 Temperature 36.4 C L Heart Rate 83 Respiratory 16 Rate Blood Pressure 112/56 L O2 Saturation 98 Oxygen O2 Source Room air - Rads (name of study) R ankle xray Radiology: Prelim report reviewed, EMP read contemporaneously, See rad report (1. No fracture or dislocation. 2. Ankle swelling ) R foot xray Radiology: Prelim report reviewed, EMP read contemporaneously, See rad report (1. No acute osseous abnormality in the foot. 2. On AP view of the foot, there appears to be an acute nondisplaced fracture of the lateral malleolus which was occult on ankle x-rays of the same date. Consider casting and follow-up x-rays i n 7-[address] for further evaluation/confirmation. ) Procedures - Splint (location) Right lower extremity Splint applied by: Physician, Tech Type of splint: Fiberglass, Short leg, Posterior Other: Patient tolerated well, No complications, Neurovascular intact, Crutches provided PD MEDICAL DECISION MAKING - ED course Complexity details: reviewed results, re-evaluated patient, considered musa petersen, d/w patient ED course: Patient with a possible nondisplaced fracture of the lateral malleolus on one view foot x-ray. Placed in a posterior splint. We will have her rechecked by orthopedics in a week and have repeat x-rays at that time. Patient is allergic to most pain medications. She states that she can utilize Motrin at home. Neurovascularly intact. Patient counseled regarding signs and symptoms for which I believe and urgent re-evaluation would be necessary. Patient with good understanding of and agreement to plan and is comfortable going home at this time This document was made in part using voice recognition software. While efforts are made to proofread this document, sound alike and grammatical errors may occur. Departure - Departure Disposition: 01 Home, Self Care Clinical Impression: Right ankle sprain Qualifiers: Encounter type: initial encounter Involved ligament of ankle: unspecified ligament Qualified Code(s): S93.401A - Sprain of unspecified ligament of right ankle, initial encounter Condition: Good Instructions: ED Fx Ankle Lateral Malleolus Follow-Up: your,doctor in 1 week [Other] [facility] [Provider Group] - Within 1 week Prescriptions: Ibuprofen [Motrin] 800 mg PO Q8H PRN #30 tablet PRN Reason: PAIN &/OR FEVER Comments: Return if you worsen. Your xray shows a possible nondisplaced fracture of your lateral malleolus. This is only visible on one view. You should have repeat x- rays in 1 week. Follow-up with orthopedicds for further care. Continue to ice and elevate at home.
--- NOTE | 2019-08-14 16:04 | XRAY Report ---
Reason: R foot pain s/p fall Procedure Date: 08/14/2019 Accession Number: [id number] / [id number] Procedure: XR - Foot 3 View RT CPT Code: Final Report FULL RESULT: EXAM: RIGHT FOOT RADIOGRAPHY EXAM DATE: 08/14/2019 03:53 PM. CLINICAL HISTORY: R foot pain s/p fall. COMPARISON: ANKLE 3 VIEW RT 08/14/2019 2:55 PM. TECHNIQUE: 3 views. FINDINGS: Bones: No acute fracture in the foot. On AP view of the foot, there appears to be a acute nondisplaced fracture of the lateral malleolus which was occult on ankle x-rays of the same date. No suspicious osseous lesion. Joints: No significant joint space narrowing. No dislocation. Other: None. IMPRESSION: 1. No acute osseous abnormality in the foot. 2. On AP view of the foot, there appears to be an acute nondisplaced fracture of the lateral malleolus which was occult on ankle x-rays of the same date. Consider casting and follow-up x-rays in 7-[address] for further evaluation/confirmation. RADIA
[2019-08-14 16:24] VITALS: BP 118/59
== END 2019-08-14 16:31 | disposition home or self-care (01) ==
LOC: ED 14:45
DX: S93.401A Sprain of unspecified ligament of right ankle, initial encounter (principal); X50.1XXA Overexertion from prolonged static or awkward postures, initial encounter; Y93.H9 Activity, other involving exterior property and land maintenance, building and construction; Y92.008 Other place in unspecified non-institutional (private) residence as the place of occurrence of the external cause
CPT/HCPCS: 29515; 73610; 73630; 99283; 99284; A9270

== ENCOUNTER 2020-03-09 20:05 | Emergency (ER) | payer OTHER ==
[2020-03-09 20:18] VITALS: BP 131/84
[2020-03-09] MEDS ORDERED: BUFFERED LIDOCAINE 10 ML SYRINGE SUBQ STA (20:41)
[2020-03-09] MEDS ORDERED: BACITRACIN ZINC OINT 1 PACKET TOP STA (20:41)
[2020-03-09] MEDS ORDERED: TETANUS/DIPHTHERIA/PERTUSSIS 0.5 ML SYRINGE IM ONE (20:42)
--- NOTE | 2020-03-09 20:54 | ED Physician Documentation ---
History of Present Illness - Stated complaint Stated Complaint: LT FINGER LAC - Chief complaint Chief Complaint: Laceration - Additonal information Additional information: 34-year-old ambidextrous female comes to the emergency department with a laceration on the medial side of her left distal finger between the PIP and DIP joint. She was using an X-Acto knife at home cutting her finger when it slipped. Last tetanus 2009 Review of Systems Constitutional: reports: Reviewed and negative Nose: reports: Reviewed and negative Throat: reports: Reviewed and negative Cardiac: reports: Reviewed and negative Respiratory: reports: Reviewed and negative GI: reports: Reviewed and negative Skin: reports: Laceration (s) (left distal index finger) PD PAST MEDICAL HISTORY - Past Medical History Past Medical History: Yes Cardiovascular: None Respiratory: Asthma Neuro: None Endocrine/Autoimmune: None GI: Hiatal hernia NUT FORMER: None : None HEENT: None Psych: Depression Musculoskeletal: None Derm: Psoriasis - Past Surgical History Past Surgical History: Yes 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: 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, Other - Present Medications Home Medications: Ambulatory Orders Medication Instructions Recorded Confirmed Adalimumab [Humira] 10 mg PO 05/22/17 Meloxicam 7.5 mg 03/25/18 buPROPion [Wellbutrin Sr] 100 mg 03/25/18 predniSONE [Prednisone] 60 mg PO DAILY 5 Days #15 tablet 03/25/18 Cephalexin [Keflex] 500 mg PO Q6H #28 capsule 06/23/19 Ibuprofen [Motrin] 800 mg PO Q8H PRN #30 tablet 08/14/19 - Allergies Allergies/Adverse Reactions: Allergies Allergy/AdvReac Type Severity Reaction Status Date / Time acetaminophen Allergy Unknown Verified 03/09/20 20:15 [From Darvocet-N 100] avocado Allergy Unknown Verified 03/09/20 20:15 coconut oil Allergy Unknown Verified 03/09/20 20:15 oxycodone HCl * Allergy Unknown Verified 03/09/20 20:15 [From Percocet] propoxyphene napsylate * Allergy Unknown Verified 03/09/20 20:15 [From Darvocet-N 100] codeine AdvReac Unknown Verified 03/09/20 20:15 hydrocodone bitartrate * AdvReac Unknown Verified 03/09/20 20:15 [From Vicodin] Iodine and Iodide Containing AdvReac Unknown Verified 03/09/20 20:15 Produc tramadol AdvReac Unknown Verified 03/09/20 20:15 - Social History Does the pt smoke?: No Smoking Status: Never smoker Does the pt drink ETOH?: Yes Does the pt have substance abuse?: No - Immunizations Immunizations are current?: Yes - POLST Patient has POLST: No PD ED PE NORMAL - Derm Derm: Normal color, Warm and dry, Other (1 cm laceration medial side left index finger between PIP and DIP joint. Patient able to fully flex and extend all joints of the left middle finger against resistance. Distal sensation preserved. 2+ radial pulse) Results - Vitals Vitals: Vital Signs - 24 hr 03/09/20 20:15 Temperature 36 C L Heart Rate 87 Respiratory 18 Rate Blood Pressure 131/84 H O2 Saturation 96 Oxygen O2 Source Room air Procedures - Laceration (location) left middle finger Length in cm: 1 Wound type: Linear Neurovascular status: Sensory intact, Motor intact, Vascular intact Tendon involvement: Tendon intact Wound Preparation: Irrigated copiously NS Skin layer closure: Dermabond Other: Patient tolerated well, No complications, Neurovascular intact, Tetanus booster given Complexity: Simple PD MEDICAL DECISION MAKING - ED course Complexity details: reviewed results, d/w patient ED course: [place] left medial finger laceration sustained this evening when seeing an X-Acto knife. No paresthesias. tendon intact. Wound easily closed with Dermabond tetanus updated today routine care and return precautions discussed Departure - Departure Disposition: 01 Home, Self Care Clinical Impression: Finger laceration Qualifiers: Encounter type: initial encounter Finger: middle finger Damage to nail status: without damage Foreign body presence: without foreign body Laterality: left Qualified Code(s): S61.213A - Laceration without foreign body of left middle finger without damage to nail, initial encounter Condition: Stable Instructions: ED Laceration Ext Skin Glue Comments: the glue on your finger will wear away in about one week. do not submerge your finger in dirty water. if you develop fevers, finger swelling, milky drainage, please return to the ED for a second look
== END 2020-03-09 22:26 | disposition home or self-care (01) ==
LOC: ED 20:05
DX: S61.211A Laceration without foreign body of left index finger without damage to nail, initial encounter (principal); W26.0XXA Contact with knife, initial encounter; Y93.D9 Activity, other involving arts and handcrafts
CPT/HCPCS: 12001; 90471; 99281; 99283

== ENCOUNTER 2020-06-13 08:00 | Outpatient (CLI) | payer BC, OTHER ==
[2020-06-13 18:27] LABS: BASOPHILS # (AUTO) 0.1 10^3/uL (0.0-0.1); BASOPHILS % (AUTO) 0.5 %; EOSINOPHILS # (AUTO) 0.1 10^3/uL (0.0-0.7); HGB - HEMOGLOBIN 11.1 g/dL (12.0-16.0); LYMPHOCYTES % (AUTO) 31.1 %; MEAN CORPUSCULAR HEMOGLOBIN 27.3 pg (27.0-31.0); MEAN CORPUSCULAR VOLUME 82.6 fL (81.0-99.0); MONOCYTES # (AUTO) 0.6 10^3/uL (0.0-1.0); MONOCYTES % (AUTO) 6.3 %; NEUTROPHILS # (AUTO) 5.9 10^3/uL (1.5-6.6); NEUTROPHILS % (AUTO) 60.9 %; PLT - PLATELET COUNT 280 10^3/uL (130-450); RED BLOOD COUNT 4.07 10^6/uL (4.20-5.40); RED CELL DISTRIBUTION WIDTH 12.9 % (12.0-15.0); WHITE BLOOD COUNT 9.7 x10^3/uL (4.8-10.8)
[2020-06-13 18:35] LABS: CALCIUM 9.3 mg/dL (8.5-10.3); CREATININE 0.7 mg/dL (0.4-1.0)
[2020-06-13 18:46] LABS: HCG UR QUAL NEGATIVE
== END 2020-06-13 23:59 | disposition home or self-care (01) ==
LOC: LAB.WCP 08:00
PROVIDERS: ATTEND Family Medicine
DX: Z01.89 Encounter for other specified special examinations (principal)
CPT/HCPCS: 36415; 80048; 81025; 85025

== ENCOUNTER 2020-06-15 12:00 | Emergency (ER) | payer BC, OTHER ==
[2020-06-15 12:53] LABS: BILIRUBIN,URINE NEGATIVE (NEGATIVE); GLUCOSE, URINE (UA) NEGATIVE (NEGATIVE); KETONES,URINE (UA) NEGATIVE (NEGATIVE); LEUKOCYTE ESTERASE, URINE NEGATIVE (NEGATIVE); NITRITE,URINE NEGATIVE (NEGATIVE); OCCULT BLOOD,URINE MODERATE (NEGATIVE); PROTEIN,URINE NEGATIVE (NEGATIVE); UROBILINOGEN,URINE 0.2 (NORMAL) E.U./dL (NORMAL)
[2020-06-15 12:54] LABS: CLARITY,URINE CLEAR (CLEAR)
[2020-06-15 12:55] LABS: HCG UR QUAL NEGATIVE
[2020-06-15 13:06] LABS: BACTERIA,URINE Rare /HPF (None Seen); RBC,URINE 0-5 /HPF (0-5); SQUAMOUS EPITHELIAL CELL,UR RARE Squamous (<= Few)
[2020-06-15 13:21] LABS: BASOPHILS # (AUTO) 0.1 10^3/uL (0.0-0.1); BASOPHILS % (AUTO) 0.6 %; EOSINOPHILS # (AUTO) 0.1 10^3/uL (0.0-0.7); EOSINOPHILS % (AUTO) 0.9 %; HGB - HEMOGLOBIN 11.5 g/dL (12.0-16.0); LYMPHOCYTES # (AUTO) 2.6 10^3/uL (1.5-3.5); LYMPHOCYTES % (AUTO) 29.7 %; MEAN CORPUSCULAR HEMOGLOBIN 27.8 pg (27.0-31.0); MEAN CORPUSCULAR HGB CONC 33.5 g/dL (32.0-36.0); MEAN CORPUSCULAR VOLUME 82.9 fL (81.0-99.0); MEAN PLATELET VOLUME 9.3 fL (7.9-10.8); MONOCYTES # (AUTO) 0.6 10^3/uL (0.0-1.0); MONOCYTES % (AUTO) 7.1 %; NEUTROPHILS # (AUTO) 5.3 10^3/uL (1.5-6.6); NEUTROPHILS % (AUTO) 61.4 %; PLT - PLATELET COUNT 277 10^3/uL (130-450); RED BLOOD COUNT 4.14 10^6/uL (4.20-5.40); RED CELL DISTRIBUTION WIDTH 13.1 % (12.0-15.0); WHITE BLOOD COUNT 8.6 x10^3/uL (4.8-10.8)
[2020-06-15 13:29] LABS: ALBUMIN 3.5 g/dL (3.2-5.5); ALBUMIN/GLOBULIN RATIO 0.9 (1.0-2.2); BILIRUBIN,TOTAL 0.4 mg/dL (0.2-1.0); CALCIUM 9.4 mg/dL (8.5-10.3); CREATININE 0.6 mg/dL (0.4-1.0); INR 1.1 (0.8-1.2); PT - PROTHROMBIN TIME 11.9 secs (9.9-12.6); TOTAL PROTEIN 7.6 g/dL (6.7-8.2)
--- NOTE | 2020-06-15 13:35 | ED Physician Documentation ---
PD HPI FEMALE - Stated complaint Stated Complaint: FEMALE - Chief complaint Chief Complaint: Abd Pain - History obtained from History obtained from: Patient - History of Present Illness Timing - onset: How many weeks ago (6) Timing - duration: Weeks (6) Timing - details: Gradual onset Pain level max: 4 Associated symptoms: Pelvic pain (cramping), Vaginal bleeding Contributing factors: No: , control, Oral contraceptive - Additional information Additional information: 34-year-old female presents to the emergency department after stating she has had vaginal bleeding for the past 6 weeks. Saw her doctor and has been referred to gynecology, she is awaiting her appointment on 26 June. Nothing makes it better or worse. She is not on control. Has low pelvic cramping as well. 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 : None HEENT: None Psych: Depression Musculoskeletal: None Derm: Psoriasis - Past Surgical History Past Surgical History: Yes General: Cholecystectomy /ESCALATOR ATTENDANT: section, Other - Present Medications Home Medications: Ambulatory Orders Medication Instructions Recorded Confirmed Adalimumab [Humira] 10 mg PO 05/22/17 Albuterol 1 applic PRN PRN 06/15/20 06/15/20 Norgestimate-Ethinyl Estradiol 1 tab PO DAILY #1 packet 06/15/20 [Sprintec 28 Day Tablet] - Allergies Allergies/Adverse Reactions: Allergies Allergy/AdvReac Type Severity Reaction Status Date / Time acetaminophen Allergy Unknown Verified 03/09/20 20:15 [From Darvocet-N 100] avocado Allergy Unknown Verified 03/09/20 20:15 coconut oil Allergy Unknown Verified 03/09/20 20:15 oxycodone HCl * Allergy Unknown Verified 03/09/20 20:15 [From Percocet] propoxyphene napsylate * Allergy Unknown Verified 03/09/20 20:15 [From Darvocet-N 100] codeine AdvReac Unknown Verified 03/09/20 20:15 hydrocodone bitartrate * AdvReac Unknown Verified 03/09/20 20:15 [From Vicodin] Iodine and Iodide Containing AdvReac Unknown Verified 03/09/20 20:15 Produc tramadol AdvReac Unknown Verified 03/09/20 20:15 - Social History Does the pt smoke?: No Smoking Status: Never smoker Does the pt drink ETOH?: Yes Does the pt have substance abuse?: No - Immunizations Immunizations are current?: Yes - POLST Patient has POLST: No PD ED PE NORMAL - Vitals Vital signs reviewed: Yes - General General: Alert and oriented X 3, No acute distress, Well developed/nourished - HEENT HEENT: Moist mucous membranes - Neck Neck: Supple, no meningeal sign - Cardiac Cardiac: RRR, Strong equal pulses - Respiratory Respiratory: No respiratory distress, Clear bilaterally - Abdomen Abdomen: Soft, Non tender, Non distended - Derm Derm: Warm and dry - Extremities Extremities: No edema - Neuro Neuro: Alert and oriented X 3 - Psych Psych: Normal mood, Normal affect Results - Vitals Vitals: Vital Signs - 24 hr 06/15/20 06/15/20 12:04 14:53 Temperature 36.3 C L 34.6 C L Heart Rate 83 79 Respiratory 16 17 Rate Blood Pressure 134/80 H 105/54 L O2 Saturation 98 99 Oxygen O2 Source Room air - Labs Labs: Laboratory Tests 06/15/20 06/15/20 06/15/20 12:32 12:55 12:55 WBC 8.6 RBC 4.14 L Hgb 11.5 L Hct 34.3 L MCV 82.9 MCH 27.8 MCHC 33.5 RDW 13.1 Plt Count 277 MPV 9.3 Neut # (Auto) 5.3 Lymph # (Auto) 2.6 Sauk # (Auto) 0.6 Eos # (Auto) 0.1 Baso # (Auto) 0.1 Absolute Nucleated RBC 0.00 Nucleated RBC % 0.0 PT INR Sodium Potassium Chloride Carbon Dioxide Anion Gap BUN Creatinine Estimated GFR (MDRD) Glucose Calcium Total Bilirubin AST ALT Alkaline Phosphatase Total Protein Albumin Globulin Albumin/Globulin Ratio Lipase Urine Color YELLOW Urine Clarity CLEAR Urine pH 8.0 H Ur Specific Christian[place] 1.020 Urine Protein NEGATIVE Urine Glucose (UA) NEGATIVE Urine Ketones NEGATIVE Urine Occult Blood MODERATE H Urine Nitrite NEGATIVE Urine Bilirubin NEGATIVE Urine Urobilinogen 0.2 (NORMAL) Ur Leukocyte Esterase NEGATIVE Urine RBC 0-5 Urine WBC 0-3 Ur Squamous Epith Cells RARE Squamous Urine Bacteria Rare Ur Microscopic Review INDICATED Urine Culture Comments NOT INDICATED Urine HCG, Qual NEGATIVE Blood Type B POSITIVE Antibody Screen NEGATIVE 06/15/20 06/15/20 12:55 12:55 WBC RBC Hgb Hct MCV MCH MCHC RDW Plt Count MPV Neut # (Auto) Lymph # (Auto) Sauk # (Auto) Eos # (Auto) Baso # (Auto) Absolute Nucleated RBC Nucleated RBC % PT 11.9 INR 1.1 Sodium 136 Potassium 3.7 Chloride 102 Carbon Dioxide 24 Anion Gap 10.0 BUN 8 Creatinine 0.6 Estimated GFR (MDRD) 139 Glucose 97 Calcium 9.4 Total Bilirubin 0.4 AST 20 ALT 16 Alkaline Phosphatase 76 Total Protein 7.6 Albumin 3.5 Globulin 4.1 Albumin/Globulin Ratio 0.9 L Lipase 35 Urine Color Urine Clarity Urine pH Ur Specific Christiana Urine Protein Urine Glucose (UA) Urine Ketones Urine Occult Blood Urine Nitrite Urine Bilirubin Urine Urobilinogen Ur Leukocyte Esterase Urine RBC Urine WBC Ur Squamous Epith Cells Urine Bacteria Ur Microscopic Review Urine Culture Comments Urine HCG, Qual Blood Type Antibody Screen - Rads (name of study) pelvic US Radiology: Prelim report reviewed, EMP read contemporaneously, See rad report PD MEDICAL DECISION MAKING - ED course Complexity details: reviewed results, re-evaluated patient, considered differential, d/w patient ED course: 34-year-old female presents to the emergency department with dysfunctional uterine bleeding and menorrhagia. She does have uterine fibroids on ultrasound. No drop in hemoglobin. Discussed the case with Dr. Sims, gynecology on- call who recommends starting her on Sprintec. We will start the patient on this. She does not have any history of blood clots. No history of liver disease. Patient counseled regarding signs and symptoms for which I believe and urgent re-evaluation would be necessary. Patient with good understanding of and agreement to plan and is comfortable going home at this time This document was made in part using voice recognition software. While efforts are made to proofread this document, sound alike and grammatical errors may occur. Patient will follow up with [place] [facility] as scheduled next week 1. Small uterine fibroid as above. No gross endometrial mass or fluid. 2. Bilateral ovarian follicles and cysts as above. No evidence of ovarian torsion. No gross solid appearing ovarian lesion. Departure - Departure Disposition: 01 Home, Self Care Clinical Impression: Dysfunctional uterine bleeding Menorrhagia Qualifiers: Menorrhagia type: with irregular cycle Qualified Code(s): N92.1 - Excessive and frequent menstruation with irregular cycle Uterine fibroid Qualifiers: Uterine leiomyoma location: submucous Qualified Code(s): D25.0 - Submucous leiomyoma of uterus Condition: Good Instructions: ED Bleed Irregular Vaginal Follow-Up: IZZY GENAO ARNP [Primary Care Provider] - Within 1 week Prescriptions: Norgestimate-Ethinyl Estradiol [Sprintec 28 Day Tablet] 1 tab PO DAILY #1 packet Comments: We will start you on Sprintec today. I spoke with gynecology, Dr. Sims. Return if you worsen. 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 Discharge Date/Time: 06/15/20 14:58
--- NOTE | 2020-06-15 14:25 | Ultrasound Report ---
PROCEDURE: Pelvic w/Transvag+Doppler Comp INDICATIONS: vaginal bleeding x 6 weeks TECHNIQUE: Real-time scanning was performed of the pelvic organs, with image documentation. Additional endovagi nal scanning was necessary due to incomplete visualization of the adnexal and endometrial structures by transabdominal scanning. COMPARISON: CT of abdomen and pelvis dated 12/14/2016.. FINDINGS: Transabdominal scanning: Limited scanning through the kidneys shows no hydronephrosis. No pathologi c free abdominal or pelvic fluid. Endovaginal scanning: Uterus: Uterus is normal in size at 8.4 x 4.6 x 4.9 cm. The endometrium measures 8 mm in combined t hickness. There is no endometrial mass or fluid. Heterogeneous myometrial echotexture is seen with a 2.5 x 1.5 x 2.3 cm submucosal fibroid seen in posterior right myometrium. Small nabothian cysts are noted in endocervical canal. Ovaries: Right ovary measures 3.6 x 2.4 x 2.5 cm in size. Left ovary measures 2.6 x 3 x 2.3 cm in si ze. Less than 12 bilateral ovarian follicles are seen. Simple cyst is seen in left ovary measures 2.3 x 2 x 2.2 cm in size. Normal arterial and venous flow is seen in bilateral ovaries on color Doppler images. No solid appearing ovarian lesion. IMPRESSION: 1. Small uterine fibroid as above. No gross endometrial mass or fluid. 2. Bilateral ovarian follicles and cysts as above. No evidence of ovarian torsion. No gross solid stephanie earing ovarian lesion. Reviewed by: Scott Collazo MD on 06/15/2020 2:23 PM PST Approved by: Scott Collazo MD on 06/15/2020 2:23 PM PST Station ID: [id number]
[2020-06-15 14:53] VITALS: BP 105/54
== END 2020-06-15 14:58 | disposition home or self-care (01) ==
LOC: ED 12:00
DX: N93.8 Other specified abnormal uterine and vaginal bleeding (principal); N92.1 Excessive and frequent menstruation with irregular cycle; D25.0 Submucous leiomyoma of uterus; N83.202 Unspecified ovarian cyst, left side
CPT/HCPCS: 36415; 80053; 81001; 81003; 81025; 83690; 85025; 85610; 86850; 86900; 86901; 87086; 93975; 99284; 99285

== ENCOUNTER 2020-09-07 09:54 | Emergency (ER) | payer OTHER ==
[2020-09-07] MEDS ORDERED: CHERRY SYRUP 10 ML UDC PO ONE (10:05)
[2020-09-07] MEDS ORDERED: DEXAMETHASONE 10 MG/ML VIAL PO STA (10:05)
--- NOTE | 2020-09-07 10:13 | ED Physician Documentation ---
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 She took Benadryl 50 mg and use her rescue inhaler with improvement in cough, throat tightness, and vocal changes, but was told to come into the emergency department because she still has some persistent voice changes. Patient denies dizziness, chest pain, shortness of breath, facial swelling, rash however she does feel some tightness around the lips. She is declining EpiPen and would like to continue to monitor her symptoms since they are improving. She has an EpiPen in her car and at home. Review of Systems Ten Systems: 10 systems reviewed and negative Constitutional: denies: Fever, Chills Throat: denies: Sore throat Respiratory: reports: Cough, Other (throat tightening) GI: reports: Nausea (nausea now resolved). denies: Vomiting Skin: reports: Other (facial itching). 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 WORKER: section, Other - Present Medications Home Medications: Ambulatory Orders Medication Instructions Recorded Confirmed Adalimumab [Humira] 10 mg PO 05/22/17 Albuterol 1 applic PRN PRN 06/15/20 06/15/20 Norgestimate-Ethinyl Estradiol 1 tab PO DAILY #1 packet 06/15/20 [Sprintec 28 Day Tablet] - Allergies Allergies/Adverse Reactions: Allergies Allergy/AdvReac Type Severity Reaction Status Date / Time acetaminophen Allergy Unknown Verified 09/07/20 09:59 [From Darvocet-N 100] avocado Allergy Unknown Verified 09/07/20 09:59 coconut oil Allergy Unknown Verified 09/07/20 09:59 oxycodone HCl * Allergy Unknown Verified 09/07/20 09:59 [From Percocet] propoxyphene napsylate * Allergy Unknown Verified 09/07/20 09:59 [From Darvocet-N 100] codeine AdvReac Unknown Verified 09/07/20 09:59 hydrocodone bitartrate * AdvReac Unknown Verified 09/07/20 09:59 [From Vicodin] Iodine and Iodide Containing AdvReac Unknown Verified 09/07/20 09:59 Produc tramadol AdvReac Unknown Verified 09/07/20 09:59 - Social History Does the pt smoke?: No Smoking Status: Never smoker Does the pt drink ETOH?: Yes Does the pt have substance abuse?: No - Immunizations Immunizations are current?: Yes - POLST Patient has POLST: No PD ED PE NORMAL - Vitals Vital signs reviewed: Yes - General General: Alert and oriented X 3, No acute distress, Well developed/nourished - HEENT HEENT: Atraumatic, PERRL, EOMI, Moist mucous membranes, Pharynx benign, Other (no oral swelling. ) - Neck Neck: Other (good upper respiratory air flow on auscultation of the neck) - Cardiac Cardiac: RRR - Respiratory Respiratory: No respiratory distress, Clear bilaterally - Derm Derm: Normal color, Warm and dry, No rash - Neuro Neuro: Alert and oriented X 3 Results - Vitals Vitals: Vital Signs - 24 hr 09/07/20 09/07/20 09/07/20 10:00 10:19 11:25 Temperature 36.9 C Heart Rate 98 81 72 Respiratory 24 16 16 Rate Blood Pressure 142/100 H 115/66 O2 Saturation 97 97 100 Oxygen O2 Source Room air PD MEDICAL DECISION MAKING - ED course ED course: 34-year-old woman presents with allergic reaction, improving with oral Benadryl 50 mg. Will give Decadron and continue to monitor. Patient is declining EpiPen at this time since her symptoms appear to be resolving. 11:58 AMsymptoms resolved. Patient requesting to go home. Strict return precautions given. She will follow up with her primary doctor. Departure - Departure Disposition: 01 Home, Self Care Clinical Impression: Allergic reaction, Facial twitching, Throat tightness, Nausea Condition: Good Instructions: ED Allergic Reaction General Other Comments: You were seen in the emergency department for an allergic reaction. It appears to have resolved with Benadryl and Decadron. Make sure you carry your EpiPen with you at all times. Return to the emergency department if you have any new or worsening symptoms or other concerns. Follow-up with your primary doctor.
[2020-09-07 12:11] VITALS: BP 116/76
== END 2020-09-07 12:10 | disposition home or self-care (01) ==
LOC: ED 09:54
DX: T78.40XA Allergy, unspecified, initial encounter (principal); X58.XXXA Exposure to other specified factors, initial encounter
CPT/HCPCS: 99282; 99284; A9270

== ENCOUNTER 2020-09-11 09:24 | Outpatient (CLI) | payer OTHER ==
[2020-09-11 12:31] VITALS: BP 142/95
--- NOTE | 2020-09-11 12:31 | SLEEP CARE CONSULTATION ---
Information from patient questionnaire entered by Jag Aguilar. I have reviewed and concur with the information entered by Jag Aguilar. This document represents the service I personally performed and the decisions made by me, Aliya Regan MD, [facility]. History of Present Illness Service Date and Time: 09/11/2020923 Reason for Visit: New patient Chief Complaint: reports: Observed pauses in breathing Date of Onset: at a minimum of 2 years Usual bedtime: 10:30 - 11:00 Time it takes to fall asleep: Unmedicated, quite sometime. Medicated 15-20 min Snores at night: Yes Observed to quit breathing while asleep: Yes Sleeps alone due to snoring: No Number of times waking at night: Once asleep rarely Reasons for waking at night: reports: Choking, Gasping for air Toss, Turn, or Twitch while sleeping: Yes (sometimes) Recalls having dreams: Yes Usually gets out of bed at: 6-8 depends on my shift Feels refreshed in the morning: No Morning headache: No Sleepy or fatigued during the day: Yes Ever fallen asleep while driving: Yes Takes day naps: No Dreams during day naps: Yes Prior sleep studies: No Additional HPI information: I have the pleasure of seeing Ms. Hagen today regarding the possibility of her having obstructive sleep apnea. As you know, she is a 35 year old lady who complains of observed apneas. The patient tells me that she normally goes to bed around 11 pm, and it takes her approximately 15 - 20 minutes to fall asleep. She has been told that she snores loudly and irregularly at night. She has also been observed to stop breathing in her sleep. Her can still sleep in the same bed. He snores loudly when not wearing his CPAP. She can recall waking up on the average of 8- 9 times during the night. Most of the time she wakes up occasionally because of her own snoring, choking, and having to gasp for air. There is a lot of tossing and turning in her sleep. In the morning she usually gets up out of the bed at variable times. She usually does not have a morning headache. During the day she complains of feeling sleepy and fatigued. Her score on [place] Sleepiness Scale is 5 out of 24. She has fallen asleep while driving and has gone out of the aquiles. She usually does not take naps during the day. She reports having impaired concentration during the day. 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 Patient is and lives in [place]. Have you smoked in the past 12 months: No Alcohol use: Yes Alcohol amount and frequency: 1 rarely; maybe 6 x's/month Caffeine use: Yes Caffeine amount and frequency: 2 a month Family History Family history of sleep disordered breathing: Yes (Mother snores) Allergies and Home Medications Drug allergies reviewed: Yes Home medication list reviewed: Yes Review of Systems Weight gain over past 5 years: 20 Cardiovascular: denies: high blood pressure, palpitations, chest pain, irregular heart rate or pulse, leg or foot swelling, have to sleep sitting up, other Gastrointestinal: reports: heartburn, diarrhea Urinary: denies: incontinence, frequency, urgency, impotence, other Neurological: denies: headaches, seizure, head trauma, disorientation, speech dysfunction, gait or balance problems, fainting or unconsciousness, other Psychiatric: reports: Attention Deficit Hyperactivity Ear/Nose/Throat: reports: wisdom teeth removed Endocrine: reports: sluggishness (tired), excessive thirst Musculoskeletal: reports: joint pain, back pain, joint swelling Immunologic: reports: rash, itching, allergies to food or environment Physical Exam Vital signs obtained and entered by: Dr. Regan Blood Pressure: 142/95 Cuff size: regular Heart Rate: 97 O2 Saturation: 95 Height: 5 ft 4 in Weight: 284 lb Body Mass Index: 48.7 BMI Classification: Morbidly Obese Mood/affect: normal HEENT: No craniofacial malformation Nostrils: patent to airflow Turbinates: normal Septum: midline Mouth and throat: narrow oropharynx Soft palate: long Hard palate: normal Uvula: normal Uvula visualization: 50% Mallampati Class II Tongue: normal in size Tonsils: small Chin and jaw: normal size and position Neck: normal w/o lymphadenopathy or thyromegaly Impression and Plan IMPRESSION: 1. Obstructive Sleep Apnea-Hypopnea Syndrome, as evident by history of loud and irregular snoring, observed cessation of breath while asleep, frequent awakenings during the night, unrefreshed sleep, cognitive impairment, and daytime hypersomnolence. Narrow oropharynx and obesity are common predisposing factors for obstructive sleep apnea-hypopnea syndrome. I recommend proceeding to polysomnography to confirm the diagnosis and to assess severity. I informed the patient of what the sleep studies involve and after some discussion, she would like to first have a home sleep apnea test (HSAT). Plan: 1. Schedule a home sleep apnea test (HSAT) 2. Avoid long distance driving or when feeling sleepy. 3. Avoid alcohol, sedative and muscle relaxant around bedtime. 4. Attempt to lose weight. Visit Type: In Office Time Spent with Patient (minutes): 15 Provider Statement: I spent 100% of the Face to Face Visit with the patient with greater than 50% spent counseling the patient and coordination of care.
== END 2020-09-11 09:25 | disposition home or self-care (01) ==
LOC: SC 09:24
PROVIDERS: ATTEND Internal Medicine Pulmonary Disease
DX: G47.10 Hypersomnia, unspecified (principal); R06.83 Snoring; R06.81 Apnea, not elsewhere classified; G47.8 Other sleep disorders; E66.01 Morbid (severe) obesity due to excess calories; Z68.42 Body mass index [BMI] 45.0-49.9, adult; R41.89 Other symptoms and signs involving cognitive functions and awareness
CPT/HCPCS: 99202; 99212

== ENCOUNTER 2020-10-31 15:30 | Outpatient (CLI) | payer OTHER | END 2020-10-31 15:31 | disposition home or self-care (01) | LOC: SC 15:30 | PROVIDERS: ATTEND Nurse Practitioner Family | DX: G47.33 Obstructive sleep apnea (adult) (pediatric) (principal); R09.02 Hypoxemia | CPT/HCPCS: 95806 ==

== ENCOUNTER 2020-11-13 14:29 | Outpatient (CLI) | payer OTHER ==
--- NOTE | 2020-11-13 16:18 | SLEEP CARE CONSULTATION ---
Information from patient questionnaire entered by Lu Torres. I have reviewed and concur with the information entered by Lu Torres. This document represents the service I personally performed and the decisions made by me, Aliya Regan MD, [facility]. History of Present Illness Service Date and Time: 11/13/2020 1429 Initial Cameron Sleepiness Scale score: 5 (in 2020) Additional HPI information: To minimize the risk of COVID-19 exposure, the patient has requested and consented to this telephone visit. The patient also agrees to having his insurance billed. HPI: Ms. Hagen was called for follow up of the home sleep apnea test (HSAT) she had on. The test showed moderate obstructive sleep apnea-hypopnea with an AHI of 17.1 and luis enrique oxygen saturation of 74%. The patient was informed of these findings. I explained to her the pathophysiology behind obstructive sleep apnea. We then spent quite a bit of time discussing different treatment options. For mild obstructive sleep apnea, surgery and oral appliance are alternatives to nasal CPAP therapy but in moderate or severe cases, nasal CPAP is the most effective and reliable treatment. After some discussion, she opted to go with the nasal CPAP therapy. I explained to her how CPAP machine works and what to expect when using the machine. She is familiar with the treatment because her uses a CPAP. Sleep Study - Results Type of Sleep Study: Home sleep study Prior sleep studies: No Allergies and Home Medications Drug allergies reviewed: Yes Home medication list reviewed: Yes Review of Systems Review of systems same as previous: Yes Physical Exam Height: 5 ft 4 in Weight: 284 lb Body Mass Index: 48.7 BMI Classification: Morbidly Obese Impression and Plan IMPRESSION: 1. Obstructive Sleep Apnea-Hypopnea Syndrome, moderate, associated with moderate hypoxemia. Obviously this is the cause of the patients symptoms of unrefreshed sleep, and excessive daytime sleepiness. As mentioned above, the patient will be started on autoCPAP set between 4 and 12 cmH2O. Depending on her response and compliance she may be brought back for an overnight CPAP titration study. PLAN: 1. Prescription made for an autoCPAP, heated humidifier, and related supplies. She would like to use [employer] who her uses. 2. Attempt to lose weight. 3. Return in one month for follow up. I will assess her response and compliance at that time. Follow up recommended for: Weight management Visit Type: Telehealth Video Video Type: VSee Time Spent with Patient (minutes): 15 Provider Statement: I spent 100% of the Telehealth Video Call with the patient with greater than 50% spent counseling the patient and coordination of care.
== END 2020-11-13 14:30 | disposition home or self-care (01) ==
LOC: SC 14:29
PROVIDERS: ATTEND Internal Medicine Pulmonary Disease
DX: G47.33 Obstructive sleep apnea (adult) (pediatric) (principal); E66.01 Morbid (severe) obesity due to excess calories; Z68.42 Body mass index [BMI] 45.0-49.9, adult

== ENCOUNTER 2021-01-17 09:59 | Outpatient (CLI) | payer OTHER ==
--- NOTE | 2021-01-17 10:18 | SLEEP CARE CONSULTATION ---
Information from patient questionnaire entered by uL Torres. I have reviewed and concur with the information entered by Lu Torres. This document represents the service I personally performed and the decisions made by , Doris Lopez ARNP. History of Present Illness Service Date and Time: 01/17/2021 0959 Previous diagnosis: Moderate, Obstructive Sleep Apnea-Hypopnea Syndrome AHI: 17.1 (in 2020) Reason for follow up: first compliance Equipment type: CPAP Equipment obtained from: [employer] (got initial supplies; had to go to [employer] for help) Mask style: Nasal Backup mask available: Yes (old mask) Last cushion change: last week Prior sleep studies: Yes Year and Where: 2020 - [facility] Sleep Type of Sleep Study: Home sleep study HPI additional information: ALEX PEREZ was diagnosed to have moderate, AHI 17.1, obstructive sleep apnea-hypopnea syndrome and returns via Telehealth visit today for CPAP therapy first compliance follow-up. CPAP Compliance Data - Data Reviewed with Patient Average duration of nightly device use: 7 hr 44 min Compliance rate %: 96.7 Current pressure setting (cmH2O): 4-12 (median 8.0, avg 10.2, max 10.7) Humidity settin Heated hose settin Average residual AHI: 1.1 Average large leak: 2 sec Subjective Patient concerns: reports: mask leak noise (just adjustment needed). denies: aerophagia, mask discomfort, air blowing in eyes, condensation in mask/hose, nasal congestion, dry mouth, nose, throat, epistaxis, other Observed to snore while using device: No Current pressure setting perceived as: comfortable On therapy, patient: reports: sleeping better, awakening more refreshed, being more awake and alert during the day, more rested overall. denies: drowsiness while driving Initial [place] Sleepiness Scale score: 5 (in 2020) Current [place] Sleepiness Scale score: 1 Allergies and Home Medications Home medication list reviewed: Yes (Phentermine) Review of Systems Review of systems same as previous: Yes (no changes) Physical Exam Vital signs obtained and entered by: Telehealth visit to reduce exposure during Covid pandemic Height: 5 ft 4 in Impression and Plan 1. Obstructive Sleep Apnea-Hypopnea Syndrome, moderate, with good treatment compliance and good apnea control. On CPAP therapy, the patient has better sleep quality and is more rested overall. The patients pressure will be changed to autoCPAP 8-12 cmH20. Patient advised to contact me if pressure change is uncomfortable so that it can be adjusted. Patient had an issue with her mask but it is becoming more comfortable and the mask leak noises resolved with adjustment of the mask. She feels she is getting used to it and is having good benefit from CPAP therapy. Patient encouraged to lose weight as this will help reduce apneas and improve her overall health. We will follow up with patient in 1 to 2 months. Patient's apnea severity and rationale for treatment to reduce apnea, improve sleep quality and reduce cardiovascular and cerebrovascular events was reviewed. I also reviewed the benefit of consistent device use of CPAP for gastric reflux. * Change auto CPAP pressure to 8-12 cmH2O * Notify me if snoring with mask or feeling that the pressure is too much or too little * Attempt to lose weight * Call this office if any problems using CPAP * Return for follow up in 1-2 months, or sooner if concerns arise Counseling Topics: Spare mask, Weight loss health impact Visit Type: Telehealth Video Video Type: VSee Patient Location: mother's h Location of Provider: Office Patient agrees and consents to this telehealth visit type: Yes Patient agrees to have their insurance billed: Yes Time Spent with Patient (minutes): 20 Provider Statement: I spent 100% of the Telehealth Video Call with the patient with greater than 50% spent counseling the patient and coordination of care.
== END 2021-01-17 10:00 | disposition home or self-care (01) ==
LOC: SC 09:59
PROVIDERS: ATTEND Nurse Practitioner Family
DX: G47.33 Obstructive sleep apnea (adult) (pediatric) (principal)

== ENCOUNTER 2021-02-27 09:07 | Outpatient (CLI) | payer OTHER ==
--- NOTE | 2021-02-27 09:29 | SLEEP CARE CONSULTATION ---
Information from patient questionnaire entered by Lu Torres. I have reviewed and concur with the information entered by Lu Torres. This document represents the service I personally performed and the decisions made by , Doris Lopez ARNP. History of Present Illness Service Date and Time: 02/27/2021 0907 Previous diagnosis: Moderate, Obstructive Sleep Apnea-Hypopnea Syndrome AHI: 17.1 (in 2020) Reason for follow up: other (6 week with pressure change) Equipment type: CPAP Equipment obtained from: [employer] (getting supplies as needed) Mask style: Nasal Backup mask available: Yes (old mask) Last cushion change: 1 month Prior sleep studies: Yes Year and Where: 2020 - [facility] Sleep Type of Sleep Study: Home sleep study HPI additional information: ALEX PEREZ was diagnosed to have moderate, AHI 17.1, obstructive sleep apnea-hypopnea syndrome and returned today via Telehealth visit for CPAP therapy 6 week pressure change follow-up. CPAP Compliance Data - Data Reviewed with Patient Average duration of nightly device use: 7 hr 38 min Compliance rate %: 73.8 (42 days) Current pressure setting (cmH2O): 8-12 Humidity settin Heated hose settin Average residual AHI: 1.3 Average large leak: 0 Subjective Missed days of use due to: reports: family emergency (grandmother ) Patient concerns: reports: air blowing in eyes (just needs to tighten headgear). denies: aerophagia, mask discomfort, mask leak noise, condensation in mask/hose, nasal congestion, dry mouth, nose, throat, epistaxis, other Observed to snore while using device: No Current pressure setting perceived as: comfortable On therapy, patient: reports: sleeping better, awakening more refreshed, being more awake and alert during the day, more rested overall. denies: drowsiness while driving Initial [place] Sleepiness Scale score: 5 (in 2020) Current [place] Sleepiness Scale score: 3 Allergies and Home Medications Home medication list reviewed: Yes (changed phentermine dose to 37.5 mg) Review of Systems Review of systems same as previous: Yes (no changes) Physical Exam Vital signs obtained and entered by: Telehealth visit to reduce exposure during Covid pandemic Height: 5 ft 4 in Impression and Plan 1. Obstructive Sleep Apnea-Hypopnea Syndrome, moderate, with fair treatment compliance and good apnea control. On CPAP therapy, the patient has better sleep quality and is more rested overall. She has lost 16 pounds since January 11. I encouraged her to continue trying to lose weight for her overall health. She is very happy with current treatment and has significant improvement of her apneas. Patient's apnea severity and rationale for treatment to reduce apnea, improve sleep quality and reduce cardiovascular and cerebrovascular events was reviewed. I also reviewed the benefit of consistent device use of CPAP for gastric reflux. * Continue autoCPAP pressure at 8-12 cmH2O * Notify me if snoring with mask or feeling that the pressure is too much or too little * Attempt to lose weight * Call this office if any problems using CPAP * Return for follow up in 3 months, or sooner if concerns arise Counseling Topics: Spare mask, Weight loss health impact Visit Type: Telehealth Video Video Type: VSee Patient Location: Home Location of Provider: Office Patient agrees and consents to this telehealth visit type: Yes Patient agrees to have their insurance billed: Yes Time Spent with Patient (minutes): 17 Provider Statement: I spent 100% of the Telehealth Video Call with the patient with greater than 50% spent counseling the patient and coordination of care.
== END 2021-02-27 09:08 | disposition home or self-care (01) ==
LOC: SC 09:07
PROVIDERS: ATTEND Nurse Practitioner Family
DX: G47.33 Obstructive sleep apnea (adult) (pediatric) (principal)

== ENCOUNTER 2021-05-29 09:54 | Outpatient (CLI) | payer OTHER ==
--- NOTE | 2021-05-29 10:02 | SLEEP CARE CONSULTATION ---
Information from patient questionnaire entered by Jr Andre MA. I have reviewed and concur with the information entered by Jr Andre MA. This document represents the service I personally performed and the decisions made by , Doris Lopez ARNP. History of Present Illness Service Date and Time: 05/29/2021 0940 Previous diagnosis: Moderate, Obstructive Sleep Apnea-Hypopnea Syndrome AHI: 17.1 (in 2020) Reason for follow up: three month Equipment type: CPAP Equipment obtained from: [facility] (getting supplies as needed) Mask style: Nasal Backup mask available: No (will need to keep old mask when replaced) Last cushion change: 4 weeks Prior sleep studies: Yes Year and Where: 2020 - [facility] Sleep Type of Sleep Study: Home sleep study HPI additional information: ALEX PEREZ was diagnosed to have moderate, AHI 17.1, obstructive sleep apnea-hypopnea syndrome and returns via Telehealth visit today for CPAP therapy three month follow-up. Sleep Study - Results Type of Sleep Study: Home sleep study Prior sleep studies: Yes Year and Where: 2020 - [facility] CPAP Compliance Data - Data Reviewed with Patient Average duration of nightly device use: 7 hours 22 minutes Compliance rate %: 84.4 Current pressure setting (cmH2O): 8-12 Average residual AHI: 1.4 Central apnea: 0.0 Obstructive apnea: 0.4 Average large leak: 41 seconds Subjective Patient concerns: reports: mask discomfort (headgear slipping), air blowing in eyes, nasal congestion. denies: aerophagia, mask leak noise, condensation in mask/hose, dry mouth, nose, throat, epistaxis, other Observed to snore while using device: No Current pressure setting perceived as: comfortable On therapy, patient: reports: sleeping better, awakening more refreshed, being more awake and alert during the day, more rested overall. denies: drowsiness while driving Initial [place] Sleepiness Scale score: 5 (in 2020) Current [place] Sleepiness Scale score: 5 Allergies and Home Medications Home medication list reviewed: Yes (stopped Humira; started Inflixamab infusion) Review of Systems Review of systems same as previous: Yes (no changes) Physical Exam Vital signs obtained and entered by: Telehealth visit to reduce exposure during covid pandemic Height: 5 ft 4 in Impression and Plan 1. Obstructive Sleep Apnea-Hypopnea Syndrome, moderate, with good treatment compliance and good apnea control. On CPAP therapy, the patient has better sleep quality and is more rested overall. She has been having difficulty with nasal congestion due to her seasonal allergies that get in March and April. She uses a nasal mask so when she is congested she cannot use the masks because she will breathe through her mouth. She has very dry mouth when this happens. She has still been able to meet her compliance requirements. Nasal congestion can be reduced with increasing the CPAP humidity. The heated hose can be adjusted higher if condensation with higher humidity setting. Saline nasal spray sample can be used prior to CPAP to clear nasal secretions and wash off any nasal allergens to facilitate nasal breathing. In addition, a steamy shower before bed will often assist nasal drainage. If these measures are not quite enough then she can use some OTC fluticasone nasal spray nightly until her allergies subside. She voiced understanding. Patient has lost about 22 lb loss since January and is continuing to try to lose weight. Patient's apnea severity and rationale for treatment to reduce apnea, improve sleep quality and reduce cardiovascular and cerebrovascular events was reviewed. I also reviewed the benefit of consistent device use of CPAP for gastric reflux. * Continue auto CPAP pressure at 9-13 cmH2O * Notify me if snoring with mask or feeling that the pressure is too much or too little * Continue to try to lose weight * Call this office if any problems using CPAP * Return for follow up in 6 months, or sooner if concerns arise Counseling Topics: Spare mask, Weight loss health impact Visit Type: Telehealth Video Video Type: Cb (3 month video med appt.) Patient Location: Home Location of Provider: Office Patient agrees and consents to this telehealth visit type: Yes Patient agrees to have their insurance billed: Yes Time Spent with Patient (minutes): 20 Provider Statement: I spent 100% of the Telehealth Video Call with the patient with greater than 50% spent counseling the patient and coordination of care.
== END 2021-05-29 09:55 | disposition home or self-care (01) ==
LOC: SC 09:54
PROVIDERS: ATTEND Nurse Practitioner Family
DX: G47.33 Obstructive sleep apnea (adult) (pediatric) (principal)

== ENCOUNTER 2021-11-12 10:44 | Emergency (ER) | payer OTHER ==
--- OUTSIDE RECORDS SUMMARY | 2021-11-12 11:21 | EXTERNAL MEDICAL SUMMARY RPT | Continuity of Care Document ---
:1985 Author Organization [facility] Address [address] [place] [address] Phone Care Team Providers Name Role Phone Franky Unavailable Unavailable Almy Unavailable Unavailable Allergies No information. Encounters No information. Medications No information. Problems date description facility 20211108 Chronic tonsillitis [facility] 20211107 Contact with and (suspected) exposure t o COVID-19 [facility] Procedures date description facility 20211108 [facility] 20211107 [facility] Results No information. Vital Signs date measurement value source 20211108 weight_standard 129.73 lb 20211108 weight_metric 58.84 kg 20211108 temperature_standard 97.8 F 20211108 temperature_metric 36.56 C 20211108 respiration_rate 15 /min 20211108 height_standard 64 in 20211108 height_metric 162.56 cm 20211108 heart_rate 88 /min 20211108 BP_systolic 132 mm[Hg] 20211108 BP_diastolic 84 mm[Hg] 20211108 BMI 49.1 kg/m2
[2021-11-12] MEDS ORDERED: SODIUM CHLORIDE 0.9% 1,000 ML IV STA ×2 (11:37)
[2021-11-12] MEDS ORDERED: HYDROmorphone 1 MG/ML CARPUJECT IVP STA (11:37)
--- NOTE | 2021-11-12 11:42 | ED Physician Documentation ---
History of Present Illness - Stated complaint Stated Complaint: POST SURGERY THROAT PX - Chief complaint Chief Complaint: Heent - Additonal information Additional information: 36-year-old female presents emergency department for reevaluation of severe sore throat. She underwent a tonsillectomy at [facility] on November 08. She has been recovering at home but has found swallowing increasingly difficult and painful despite Tylenol, ibuprofen and oxycodone which she reports taking every 4-6 hours. She has had no hemoptysis bloody sputum. She does have some mild dysphonia no trismus. No labored breathing chest pain or shortness of air. She called the ENT office yesterday and was told that if worsen to come to the ER. Review of Systems Constitutional: denies: Fever, Chills Throat: reports: Sore throat Cardiac: reports: Reviewed and negative Respiratory: reports: Reviewed and negative GI: reports: Reviewed and negative : reports: Reviewed and negative Skin: reports: Reviewed and negative PD PAST MEDICAL HISTORY - Past Medical History Past Medical History: Yes Cardiovascular: None Respiratory: Asthma Neuro: None Endocrine/Autoimmune: None GI: Hiatal hernia REMOTE ADVISOR: None : None HEENT: None Psych: Depression Musculoskeletal: None Derm: Psoriasis - Past Surgical History Past Surgical History: Yes General: Cholecystectomy /REMOTE ADVISOR: section, Other HEENT: Tonsil/Adenoidectomy - Present Medications Home Medications: Ambulatory Orders Medication Instructions Recorded Confirmed Albuterol 1 applic PRN PRN 06/15/20 11/12/21 Acetaminophen [Tylenol] 650 mg PO Q6H PRN 11/12/21 11/12/21 Ibuprofen [Advil] 600 mg PO Q6HR PRN 11/12/21 11/12/21 Ondansetron Odt [Zofran Odt] 4 mg TL Q8HR PRN 11/12/21 11/12/21 oxyCODONE [Roxicodone] 5 mg PO Q4HR PRN 11/12/21 11/12/21 - Allergies Allergies/Adverse Reactions: Allergies Allergy/AdvReac Type Severity Reaction Status Date / Time acetaminophen Allergy Unknown Verified 11/12/21 10:47 [From Darvocet-N 100] avocado Allergy Unknown Verified 11/12/21 10:47 coconut oil Allergy Unknown Verified 11/12/21 10:47 oxycodone HCl * Allergy Unknown Verified 11/12/21 10:47 [From Percocet] propoxyphene napsylate * Allergy Unknown Verified 11/12/21 10:47 [From Darvocet-N 100] codeine AdvReac Unknown Verified 11/12/21 10:47 hydrocodone bitartrate * AdvReac Unknown Verified 11/12/21 10:47 [From Vicodin] Iodine and Iodide Containing AdvReac Unknown Verified 11/12/21 10:47 Produc tramadol AdvReac Unknown Verified 11/12/21 10:47 - Social History Does the pt smoke?: No Smoking Status: Never smoker Does the pt drink ETOH?: Yes Does the pt have substance abuse?: No - Immunizations Immunizations are current?: Yes - POLST Patient has POLST: No PD ED PE EXPANDED - General General: Alert, In Pain - HEENT HEENT: Pharyngeal erythema. No: Pharynx normal (Uvula is midline. Both tonsillar beds are noted to have a carey eschar but no active bleeding. Mallampati of 2. Painful swallow. Mild dysphonia. Full range of motion of neck.), Tonsillar exudate - Neck Neck: Supple w/out meningeal sx, Soft tissue TTP. No: Adenopathy, Limited ROM - Cardiac Cardiac: Regular Rate, Radial strong equal, Pedal strong equal, Cap refill < 2 sec - Respiratory Respiratory: Clear to ausultation lauro. No: Distress, Labored - Abdomen Abdomen: Normal Bowel sounds. No: Tender to palpation - Derm Derm: Normal color, Warm and dry. No: Rash - Extremities Extremities: Normal. No: Deformity, Tenderness - Neuro Neuro: Alert and Oriented X 3, CNII-XII intact - GCS Eye Opening: Spontaneous Motor: Obeys Commands Verbal: Oriented Total: 15 Results - Vitals Vitals: Vital Signs - 24 hr 11/12/21 11/12/21 10:49 12:09 Temperature 36.7 C Heart Rate 91 77 Respiratory 18 16 Rate Blood Pressure 136/76 H 122/71 O2 Saturation 96 94 Oxygen O2 Source Room air - Labs Labs: Laboratory Tests 11/12/21 11/12/21 12:20 12:20 WBC 9.7 RBC 4.21 Hgb 11.8 L Hct 34.4 L MCV 81.7 MCH 28.0 MCHC 34.3 RDW 12.3 Plt Count 254 MPV 8.6 Neut # (Auto) 6.3 Lymph # (Auto) 2.6 [place] # (Auto) 0.6 Eos # (Auto) 0.1 Baso # (Auto) 0.0 Absolute Nucleated RBC 0.00 Nucleated RBC % 0.0 Sodium 136 Potassium 3.7 Chloride 100 L Carbon Dioxide 23 Anion Gap 13.0 BUN 7 Creatinine 0.6 Estimated GFR (MDRD) 137 Glucose 87 Calcium 8.8 PD MEDICAL DECISION MAKING - ED course Complexity details: reviewed results, re-evaluated patient, considered differential, d/w patient, d/w [employer]iztalk consultant (mitchell (ENT/[facility])) ED course: 36-year-old female presents emergency department for poorly controlled postoperative pain. She underwent bilateral TNA surgery at [facility] last with Dr. Mukund Ho. She had been using Tylenol, ibuprofen and oxycodone. She has had no hemoptysis or bleeding but feels that her swallow is too painful thus she is dehydrated. She is also had 2 watery stools over the last 48 hours. No fevers. 9 screening labs are entirely unremarkable given her history. On exam her ton sillar beds are intact with the typically seen thick carey eschar postoperative. Her uvula is midline. Mallampati is 2. She has some mild dysphonia and a painful swallow but is tolerating her oral secretions. Full range of motion of the neck. I briefly discussed this case with ENT surgeon Dr. Mukund Ho at [facility]. He would not recommend advanced imaging at this point. He expects that she is going to have painful postoperative course. He would recommend 20 of Decadron IV today and continue to follow-up with him postoperatively. No indication for antibiotics. Emergent return precautions will be discussed. Departure - Departure Disposition: 01 Home, Self Care Clinical Impression: Throat pain, History of tonsillectomy and adenoidectomy Condition: Stable Record reviewed to determine appropriate education?: Yes Follow-Up: Mukund Ho MD [Physician No Access] - Comments: You are seen today for worsening pain and swallow after recent tonsillectomy. As we discussed at the bedside the screening labs were entirely normal. Your vital signs have also been good here. When we look at the back of the throat you have the typical postoperative eschar on your tonsil beds. But there is no findings to suggest bleeding, infection or airway obstruction. I did discuss your case with your ENT surgeon Dr. Ho. He recommends that we give you an additional dose of Decadron today in the emergency department which we have done. Continue to follow-up with his office. If you develop an inability to swallow, cannot tolerate your oral secretions, have fevers, or bleeding from your tonsil beds you must return immediately to the emergency department.
[2021-11-12 12:24] LABS: BASOPHILS % (AUTO) 0.4 %; EOSINOPHILS # (AUTO) 0.1 10^3/uL (0.0-0.7); EOSINOPHILS % (AUTO) 0.9 %; HCT - HEMATOCRIT 34.4 % (37.0-47.0); HGB - HEMOGLOBIN 11.8 g/dL (12.0-16.0); LYMPHOCYTES # (AUTO) 2.6 10^3/uL (1.5-3.5); LYMPHOCYTES % (AUTO) 26.8 %; MEAN CORPUSCULAR HGB CONC 34.3 g/dL (32.0-36.0); MEAN CORPUSCULAR VOLUME 81.7 fL (81.0-99.0); MEAN PLATELET VOLUME 8.6 fL (7.9-10.8); MONOCYTES # (AUTO) 0.6 10^3/uL (0.0-1.0); MONOCYTES % (AUTO) 6.3 %; NEUTROPHILS # (AUTO) 6.3 10^3/uL (1.5-6.6); NEUTROPHILS % (AUTO) 65.4 %; PLT - PLATELET COUNT 254 10^3/uL (130-450); RED BLOOD COUNT 4.21 10^6/uL (4.20-5.40); RED CELL DISTRIBUTION WIDTH 12.3 % (12.0-15.0); WHITE BLOOD COUNT 9.7 x10^3/uL (4.8-10.8)
[2021-11-12 12:32] LABS: CALCIUM 8.8 mg/dL (8.5-10.3); CREATININE 0.6 mg/dL (0.4-1.0); POTASSIUM 3.7 mmol/L (3.5-5.0)
[2021-11-12] MEDS ORDERED: DEXAMETHASONE 10 MG/ML VIAL IV STA (12:54)
[2021-11-12 14:16] VITALS: BP 151/91
== END 2021-11-12 14:16 | disposition home or self-care (01) ==
LOC: ED 10:44
DX: G89.18 Other acute postprocedural pain (principal); R07.0 Pain in throat
CPT/HCPCS: 36415; 80048; 85025; 96374; 96375; 99282; 99283; J1170